=== PATIENT | female | born 1960 | race Caucasian/White ===

== ENCOUNTER 2020-04-27 09:57 | Outpatient (CLI) | payer OTHER, SELFPAY ==
--- NOTE | ~2020-04-27 | MMUS_ITS ---
EXAMINATION: MM diagnostic porter RT w danna, US breast RT limited HISTORY: Follow-up right breast asymmetries TECHNIQUE: Additional 3-D tomosynthesis images of the right breast were performed and synthetic 2-D i mages were generated. CAD analysis was submitted and interpreted. High resolution right breast ultras ound was performed. COMPARISON: Comparison to multiple prior studies sequentially, with oldest reviewed study dated 08/21. BREAST PARENCHYMAL COMPOSITION: Breast composed of scattered areas of fibroglandular density FINDINGS: MAMMOGRAPHIC FINDINGS: The right breast is stable. No new masses, calcifications or architectural distortion. Right breast a symmetries are unchanged. ULTRASOUND: Right breast ultrasound: There are mildly prominent ducts at 9:00 and 8:00. In the subareolar location there is an oval circum scribed hypoechoic mass with parallel orientation measuring 10 x 3 x 8 mm. No internal vascularity or posterior features. IMPRESSION: 1. Benign-appearing right breast mass in the subareolar location. 2. Recommend 6 month follow-up diagnostic bilateral mammogram and right breast ultrasound BI-RADS category 3, probably benign findings. Reviewed, dictated and finalized at location A. IMPRESSION: 1. Benign-appearing right breast mass in the subareolar location. 2. Recommend 6 month follow-up diagnostic bilateral mammogram and right breast ultrasound BI-RADS category 3, probably benign findings.
== END 2020-04-27 09:58 | disposition home or self-care (01) ==
PROVIDERS: PCP Nurse Practitioner Family; Visit Provider Nurse Practitioner Family
DX: R92.8 Other abnormal and inconclusive findings on diagnostic imaging of breast (principal)
CPT/HCPCS: 76642; 77061; 77065; G0279

== ENCOUNTER 2020-09-26 15:45 | Outpatient (CLI) | payer OTHER, SELFPAY ==
--- NOTE | ~2020-09-26 | XR_ITS ---
XR chest 2V DATE: 09/26/2020 16:10 INDICATION: Persistent shortness of breath following Covid infection TECHNIQUE: PA and lateral views COMPARISON: 01/08/2015 PA and lateral chest FINDINGS: Status post lower anterior cervical spine surgical fusion. Diffuse osteopenia. Mild bilateral apical capping. No pulmonary infiltrate or consolidation. There is moderate hyperinflation of the lungs. No pleural e ffusion or pulmonary vascular congestion or pneumothorax. Normal heart size. Apparently old healed right rib fractures. IMPRESSION: Moderate hyperinflation; no active cardiopulmonary disease Reviewed, dictated and finalized at location B. GER MUSIC
[2020-09-26 15:58] LABS: Basophils Absolute Auto 0.05 K/mm3 (0.00-0.10); Basophils Percent Auto 0.7 % (0.0-1.0); Eosinophils Absolute Auto 0.08 K/mm3 (0.02-0.50); Eosinophils Percent Auto 1.1 % (1.0-6.0); Hematocrit 40.6 % (35.0-49.0); Hemoglobin 13.3 g/dL (12.0-15.0); Immature Granulocyte Absolute 0.03 K/mm3 (0.00-0.00); Immature Granulocyte Percent A 0.4 % (0.0-0.0); Lymphocytes Percent Auto 26.9 % (18.0-42.0); Mean Corpuscular HGB Conc 32.8 g/dL (32.0-36.0); Mean Corpuscular Hemoglobin 30.9 pg (27.0-31.0); Mean Corpuscular Volume 94.2 fL (78.0-102.0); Monocytes Absolute Auto 0.44 K/mm3 (0.10-0.90); Monocytes Percent Auto 5.9 % (2.0-11.0); Neutrophils Absolute Auto 4.8 K/mm3 (1.7-7.2); Platelet Count Result 263 K/mm3 (150-420); Red Blood Count 4.31 M/mm3 (4.20-5.40); Red Cell Distribution Width 12.6 % (11.6-14.4); White Blood Count 7.4 K/mm3 (4.8-10.8)
[2020-09-26 17:11] LABS: Alanine Aminotransferase 49 U/L (14-59); Albumin Level 4.2 g/dL (3.4-5.0); Alkaline Phosphatase 97 U/L (46-116); Anion Gap 8 mmol/L (8-16); Aspartate Amino Transferase 16 U/L (15-37); Bilirubin,Total 0.4 mg/dL (0.00-1.00); Blood Urea Nitrogen 16 mg/dL (7-18); Carbon Dioxide 28 mmol/L (21-32); Chloride 104 mmol/L (98-108); Cholesterol 223 mg/dL (0-200); Estimated Glomerular Filt Rate > 60; Free T4 Free Thyroxine 0.78 ng/dL (0.76-1.46); Glucose 94 mg/dL (70-99); HDL Direct 50 mg/dL (40-60); LDL Cholesterol Calculated 147 mg/dL (<130); Osmolality Calculated 291 mOsm/kg (285-295); Potassium 4.4 mmol/L (3.5-5.1); Sodium 140 mmol/L (136-145); Thyroid Stimulating Hormone 4.46 uIU/mL (0.36-3.74); Total Protein 7.4 g/dL (6.4-8.2); Triglycerides 129 mg/dL (0-150)
== END 2020-09-26 15:46 | disposition home or self-care (01) ==
LOC: CHSLAB 15:49
PROVIDERS: PCP Nurse Practitioner Family; Visit Provider Nurse Practitioner Family
DX: R06.00 Dyspnea, unspecified (principal); B94.8 Sequelae of other specified infectious and parasitic diseases; E03.9 Hypothyroidism, unspecified; E78.5 Hyperlipidemia, unspecified; I10 Essential (primary) hypertension
CPT/HCPCS: 36415; 71046; 80053; 80061; 84439; 84443; 85025

== ENCOUNTER 2020-10-18 13:29 | Outpatient (CLI) | payer OTHER, SELFPAY ==
--- NOTE | 2020-10-19 10:30 | WPDPFTINT ---
PFT Interpretation PFT Interpretation: DOS: 10/18/2019 REQUESTING: Cristi Nolasco NP REASON FOR TESTING: shortness of breath PULMONARY FUNCTION TESTS Results are reliable and reproducible. Spirometry: FEV1 is 94%, 2.06 L. FVC 96%. FEV1/FVC 76%. The FEV1, FVC and FEV1% are normal. The WBC36-78% is 76%, mildly decreased. There is no significant change with bronchodilator. Lung volumes: TLC is 100%. RV is 97%. No air trapping. Airway resistance is 138%, mildly increased. Diffusion: DLCO 67%. mildly decreased. Flow volume loop: Normal. IMPRESSION: There is a mild obstructive ventilatory impairment with decreased flows in the small airways with a 15% increase after bronchodilator, normal lung volumes, and a mild decrease in diffusion. The decreased in diffusion is a nonspecific finding. Lack of response to bronchodilator should not preclude use if clinically indicated. Mary Beth Mohr MD
== END 2020-10-18 13:30 | disposition home or self-care (01) ==
LOC: CHSCARD 13:32
PROVIDERS: PCP Nurse Practitioner Family; Visit Provider Nurse Practitioner Family
DX: R06.02 Shortness of breath (principal)
CPT/HCPCS: 94060; 94726; 94729

== ENCOUNTER 2020-11-23 09:22 | Outpatient (CLI) | payer OTHER, SELFPAY ==
--- NOTE | ~2020-11-23 | MMUS_ITS ---
EXAMINATION: MM diagnostic porter BI w danna, US breast RT limited HISTORY: Follow-up right breast mass TECHNIQUE: Additional 3-D tomosynthesis images of the breasts were performed and synthetic 2-D images were generated. CAD analysis was submitted and interpreted. High resolution Limited right breast ult rasound was performed. COMPARISON: Comparison to multiple prior studies sequentially, with oldest reviewed study dated 08/21. BREAST PARENCHYMAL COMPOSITION: Breast composed of scattered areas of fibroglandular density. FINDINGS: MAMMOGRAPHIC FINDINGS: Stable asymmetry in the upper outer quadrant of the right breast. No new masses, calcifications or ar chitectural distortion. ULTRASOUND: Limited right breast ultrasound: In the subareolar location there is a prominent tubular structure me asuring 10 x 6 x 4 mm, likely a dilated duct. No other discrete masses or fluid collections. IMPRESSION: 1. Probable benign findings of the right breast. 2. Recommend 6 month follow-up diagnostic right mammogram and ultrasound BI-RADS category 3, probably benign findings. Reviewed, dictated and finalized at location A. OMETRIC TECHNICIAN IMPRESSION: 1. Probable benign findings of the right breast. 2. Recommend 6 month follow-up diagnostic right mammogram and ultrasound BI-RADS category 3, probably benign findings.
== END 2020-11-23 09:23 | disposition home or self-care (01) ==
PROVIDERS: PCP Nurse Practitioner Family; Visit Provider Nurse Practitioner Family
DX: R92.8 Other abnormal and inconclusive findings on diagnostic imaging of breast (principal)
CPT/HCPCS: 76642; 77062; 77066; G0279

== ENCOUNTER 2021-07-01 09:38 | Outpatient (CLI) | payer OTHER, SELFPAY ==
--- NOTE | ~2021-07-01 | MMUS_ITS ---
EXAMINATION: MM diagnostic porter RT w danna, US breast RT limited HISTORY: Follow-up right breast abnormality. TECHNIQUE: Additional 3-D tomosynthesis images of the right breast were performed and synthetic 2-D i mages were generated. CAD analysis was submitted and interpreted. High resolution Limited right breas t ultrasound was performed. COMPARISON: Comparison to multiple prior studies sequentially, with oldest reviewed study dated 08/21. BREAST PARENCHYMAL COMPOSITION: Breast composed of scattered areas of fibroglandular density. FINDINGS: MAMMOGRAPHIC FINDINGS: There are no suspicious masses, calcifications or architectural distortion in the right breast to sug gest malignancy. ULTRASOUND: Limited right breast ultrasound: In the subareolar location of the right breast there is a mildly pro minent duct without significant change. No suspicious masses to suggest malignancy. IMPRESSION: 1. No evidence for malignancy in the right breast. 2. Routine yearly screening mammogram and regular clinical breast examination are recommended. BI-RADS Category 2: Benign finding(s). Reviewed, dictated and finalized at location A. IMPRESSION: 1. No evidence for malignancy in the right breast. 2. Routine yearly screening mammogram and regular clinical breast examination a re recommended. BI-RADS Category 2: Benign finding(s).
== END 2021-07-01 09:39 | disposition home or self-care (01) ==
LOC: CHSIMG 09:39
PROVIDERS: PCP Nurse Practitioner Family; Visit Provider Nurse Practitioner Family
DX: R92.8 Other abnormal and inconclusive findings on diagnostic imaging of breast (principal)
CPT/HCPCS: 76642; 77061; 77065; G0279

== ENCOUNTER 2021-07-12 10:25 | Outpatient (CLI) | payer OTHER, SELFPAY ==
--- NOTE | ~2021-07-12 | XR_ITS ---
EXAMINATION:XR_CERV2-3V_CR, XR thoracic spine 2V DATE: 07/12/2021 10:58 INDICATION: Dorsalgia with pain radiating from the mid neck into the thoracic spine TECHNIQUE: 1. AP, lateral and odontoid views of the cervical spine are provided. 2. AP, lateral and lateral swimmer's views of the thoracic spine were obtained. COMPARISON: None FINDINGS: Cervical spine: Alignment is normal. Chronic C5-C7 anterior spinal fusion with anterior plate and screw fixation. Odo ntoid is intact with mild atlantoaxial osteoarthritis. Unfused cervical vertebral body heights are no rmal. Mild disc height loss at C4-C5. Mild to moderate upper cervical spine predominant facet osteoar thritis. Prevertebral soft tissues are normal. Thoracic spine: Alignment is normal. Vertebral body heights are normal. Multilevel disc height loss, mild in the uppe r and moderate in the mid to lower thoracic spine. There are multiple endplate osteophytes, bridging at several levels in the lower thoracic spine consistent with diffuse idiopathic skeletal hyperostosi s (DISH). Visualized portions of the lungs are clear. No pneumothorax. IMPRESSION: 1. C5-C7 instrumented anterior cervical spinal fusion. 2. Mild to moderate cervical and thoracic spondylosis. No acute osseous abnormality. Reviewed, dictated and finalized at location A. IMPRESSION: 1. C5-C7 instrumented anterior cervical spinal fusion. 2. Mild to moderate cervical and thoracic spondylosis. No acute osseous abnorma lity.
== END 2021-07-12 10:26 | disposition home or self-care (01) ==
LOC: CHSIMG 10:27
PROVIDERS: PCP Nurse Practitioner Family; Visit Provider Nurse Practitioner Family
DX: M54.9 Dorsalgia, unspecified (principal)
CPT/HCPCS: 72040; 72070

== ENCOUNTER 2021-12-23 14:09 | Outpatient (CLI) | payer OTHER, SELFPAY | END 2021-12-23 14:10 | disposition home or self-care (01) | LOC: ANHAUDASC 14:10 | PROVIDERS: PCP Nurse Practitioner Family; Visit Provider Otolaryngology | DX: H90.6 Mixed conductive and sensorineural hearing loss, bilateral (principal) | CPT/HCPCS: 92557; 92567 ==

== ENCOUNTER 2022-01-24 01:50 | Day surgery (SDC) | payer OTHER, SELFPAY ==
--- NOTE | 2022-01-20 15:07 | PC.NURSE ---
Addendum entered by Belkys Cannon RN 01/21/22 10:23: PT INSTRUCTED TO HOLD LOSARTAN MORNING OF SURGERY. Original Note: PLEASE GIVE TO PATIENT AT THE TIME OF PREOP TESTING Report to the Outpatient Waiting Room, entrance under the green pavilion located off [facility], at time _0700_ on date _01/24/22 . OR Time: _0900_ . IF YOUR PROCEDURE TIME IS CHANGED. WE WILL CALL YOU IN . - You and your visitor will be asked a series of questions to screen for COVID 19 for your protection. - Only one visitor is allowed at this time. - The patient visitor is requested to leave or wait in car when not with patient. - A mask is required within the hospital. Patients may have clear liquids (water, carbonated beverages, clear teas, apple juice) until 3 hours prior to surgery with a maximum of 20 ounces. - No food from midnight until time of surgery. STOP CLEAR LIQUIDS AT 0600 ON THE MORNING OF SURGERY - Take the following medications with a SIP of water the morning of surgery: __LOSARTAN_; ALBUTEROL INHALER IF NEEDED Medications to discontinue per physician N/A Date to take last dose Please no make-up, nail georgian, hairspray, perfume, deodorant, or body powder the day of surgery. No jewelry (including any body piercings) or valuables the day of surgery, leave them at home. Please take a shower or bath the night before, or the morning of, surgery with an antibacterial soap. Wear comfortable, loose fitting clothing. Children are encouraged to wear pajamas. - Jewelry must be removed prior to entering the operating room. Rings and piercings that are not removed may be cut off. - The hospital will not accept responsibility for valuables. - Please leave all valuables, including medications, at home the day of surgery. IF YOU ARE UNABLE TO GET PREOP EKG DONE AT [facility], PLEASE NOTIFY DINA LAI @ [phone]. A PREOP EKG WILL BE PERFORMED THE MORNING OF SURGERY; AN ABNORMAL FINDING MAY CANCEL YOUR SURGERY. If you are going home after surgery, a licensed racecar driver must drive you home. - NO public transportation without another adult. - We recommend that an adult stay with you for 24 hours following discharge. - We also recommend that you do not drive, make important decision, drink alcoholic beverages, or take any drugs that were not prescribed by your health care provider for at least 24 hours after your discharge time. For Pediatric surgeries, we recommend two adults accompany the child home (only one inside the building at this time). Follow any additional instructions given to you from your surgeon. If you or anyone in your household have experienced Covid symptoms in the past week, please notify your surgeon or the nurse liaison at the phone number below for possible testing. Telephone instructions given to __PATTY and asked if any additional questions and then verbalized understanding. Patient advised to call surgeon office or pre surgery nurse liaison [phone] if any additional questions.
--- NOTE | 2022-01-23 08:26 | PM.IMHP ---
H&P: HPI History of Present Illness Date/Time: 01/23/22 08:26 Chief Complaint: Eustachian tube dysfunction, type B tympanograms, intermittent otitis media, ear pressure Narrative: patient presents for planned surgical procedure no change in symptoms no change in history. Review of Systems Constitutional: Constitutional: Denies fatigue, Denies fever(s) and Denies lethargy Eyes: Eyes: Denies blurry vision and Denies change in vision ENT: Reports as per HPI Cardiovascular: Cardiovascular: Denies chest pain Respiratory: Respiratory: Denies cough Endocrine: Endocrine: Denies fatigue Hematologic/Lymphatic: Hematologic/Lymphatic: Denies easy bleeding, Denies easy bruising and Denies lymphadenopathy Allergic/Immunologic: Allergic/Immunologic: Denies seasonal rhinorrhea [facility] Past Medical History Medical History Back pain Hypothyroidism Osteoarthritis of left hip Sleep apnea Surgical History Surgical History Hx of section 1994 Family History Family History Mother Familial Alzheimer's disease of late onset Asthma Father Acute myocardial infarction Family history of coronary artery disease Alcohol abuse Father Acute myocardial infarction Family history of coronary artery disease Sibling Alcohol abuse Other Asthma Other Family history of alcoholism Family history of arthritis Hypertension Social History Social History Smoking packs per day: 2.5 Smoking cigarettes per day: 50.0 Years smoked: 14 Smoking pack-years: 35.00 Smoking status: Former smoker Tobacco type: cigarettes Smoking end date: 09/21/88 Alcohol intake: never Substance use: never Substance use type: does not use Last use: 1987 Living arrangements: with family Spiritual care concerns: No Meds Home Medications and Allergies Home Medications Medication Instructions Recorded Confirmed Type albuterol sulfate 90 mcg/actuation 1 puff INHALATION Q4H PRN #8 g 09/26/20 01/20/22 Rx aerosol inhaler fluticasone propionate 50 2 spray INTRANASAL BID #16 ml 02/13/21 01/20/22 Rx mcg/actuation nasal spray,suspension losartan [Cozaar] 50 mg PO BID 01/20/22 01/20/22 History Allergies Allergy/AdvReac Type Severity Reaction Status Date / Time No Known Allergies Allergy Unknown Verified 01/20/22 14:49 Exam Const: General: cooperative, healthy appearing, comfortable, well developed and alert HENMT: Head: normal to inspection, normocephalic and atraumatic Ears: hearing grossly normal bilaterally, external ears normal, TM's abnormal bilaterally ( Retraction bilaterally) and EAC's normal General nose exam: Normal external nose present, Normal nares present, No nasal polyps present, Normal nasal mucous membranes and turbinates present and Normal septum present Face and sinus: normal facial exam Mouth: Yes Normal oral and palatal mucosa present, Yes lip normal, Yes tongue normal, Yes oropharynx normal and Yes moist mucous membranes Teeth and gingiva: dentition normal and gingiva normal Throat: posterior oropharynx normal, tonsils normal and uvula midline Eyes: General: appearance normal, both eyes and all related structures Periorbital: periorbital findings normal Eyelids: eyelids normal Conjunctivae: conjunctivae normal Sclera: sclerae normal Neck: Neck: normal visual inspection, full ROM and no lymphadenopathy Thyroid: thyroid normal Lymphatic: no lymphadenopathy noted Resp: Effort & Inspection: normal respiratory effort and able to speak in complete sentences Cardio: Jugular venous distension: no JVD Neuro: Cranial nerves: Yes CN's II-XII intact bilaterally Assessment and Plan Assessment and plan (1) Dysfunction of both eustachian tubes:
[2022-01-24] VITALS (11 sets, daily range): BP systolic 100–143; BP diastolic 68–82; PULSE 71–126; RESP 14–18; TEMP 36.3–36.4; O2SAT 95–99
--- NOTE | 2022-01-24 06:31 | ECG_ITS ---
Measurements Intervals [place] Rate: 99 P: UT: 0 QRS: 52 QRSD: 91 T: 34 QT: 348 QTc: 447 Interpretive Statements ATRIAL FIBRILLATION ABNORMAL ECG Electronically Signed On 01-24-2022 8:12:53 CDT by Jonathan Lozano D.O.
[2022-01-24] MEDS: ACETAMINOPHEN 500 MG TABLET 1000 MG PO (06:35)
[2022-01-24] MEDS: LACTATED RINGERS 1,000 ML 30 ML IV CONT (06:40)
--- NOTE | 2022-01-24 06:45 | P.PNAN_ITS ---
Anes - Initial Pre Proc Eval Procedure: Operation Date: 01/24/22 07:30 Proposed Procedures p Bilateral Myringotomy, Insertion Of T-Tubes - Gus Milligan MD Date/Time: 01/24/22 06:45 Surgeon: Gus Milligan MD Pre Op Diagnosis: bilat chronic otitis media Patient Data Age: 61 Gender: F Height: 1.55 m Weight: 105.9 kg Last Vital Signs Temp 36.4 C L 01/24/22 06:26 Pulse 99 01/24/22 06:26 Resp 18 01/24/22 06:26 BP 143/74 H 01/24/22 06:26 Pulse Ox 97 01/24/22 06:26 Allergies Allergy/AdvReac Type Severity Reaction Status Date / Time No Known Allergies Allergy Unknown Verified 01/24/22 06:25 Home Medications Medication Instructions Recorded Confirmed Type albuterol sulfate 90 mcg/actuation 1 puff INHALATION Q4H PRN #8 g 09/26/20 01/24/22 Rx aerosol inhaler fluticasone propionate 50 2 spray INTRANASAL BID #16 ml 02/13/21 01/24/22 Rx mcg/actuation nasal spray,suspension losartan [Cozaar] 50 mg PO BID 01/20/22 01/24/22 History Patient hx anesthesia problems: none Family hx anesthesia problems: none Results Review: All pre-operative results and documents have been reviewed as part of the pre-operative evaluation. [facility] Past Medical History Medical History Back pain COPD (chronic obstructive pulmonary disease) HTN (hypertension) Hypothyroidism Osteoarthritis of left hip Sleep apnea Surgical History Surgical History Hx of section 1994 Family History Family History Mother Familial Alzheimer's disease of late onset Asthma Father Acute myocardial infarction Family history of coronary artery disease Alcohol abuse Father Acute myocardial infarction Family history of coronary artery disease Sibling Alcohol abuse Other Asthma Other Family history of alcoholism Family history of arthritis Hypertension Social History Social History Smoking packs per day: 2.5 Smoking cigarettes per day: 50.0 Years smoked: 14 Smoking pack-years: 35.00 Smoking status: Former smoker Tobacco type: cigarettes Smoking end date: 09/21/88 Alcohol intake: never Substance use: never Substance use type: does not use Last use: 1987 Living arrangements: with family Spiritual care concerns: No Anes - Eval Final PreProcedure Day of Procedure 01/24/22 06:45 Patient weight: morbidly obese Heart: regular rate and rhythm Lungs: decreased breath sounds Airway: Mallampati scale class II Neurological: alert and oriented Last oral intake: >/= 8 hours ASA classification: III Emergent: no Anesthetic plan: proceed Anesthesia type and monitoring: general GIVS and standard monitoring Results Review: All pre-operative results and documents have been reviewed as part of the pre-operative evaluation. Informed Consent: The patient's anesthetic plan and its attendant risks and benefits were discussed with the patient/family/POA. Questions were solicited and answers provided to the satisfaction of the patient/family/POA.
--- NOTE | 2022-01-24 07:18 | WPDHPUPDATE1 ---
History and Physical Update Update Date/Time: 01/24/22 07:18 History and Physical has been reviewed, including an updated exam of the patient. There are NO changes in the patient's condition. Risks, benefits, and alternatives have been discussed and questions answered. Patient agrees to proceed with procedure.
--- NOTE | 2022-01-24 07:32 | SUR.PREOP ---
Dr. Cavazos and Dr. Milligan aware of abnormal EKG reporting a-fib 99bpm. Per Dr. Cavazos OK to proceed with rate controlled for low stress surgery. Patient educated on a-fib and need for follow up and risks for no treatment. Patient feels OK to proceed with surgery. Dr. Milligan aware of Dr. Cavazos's recommendation and is OK with proceeding. TYRESE Grant aware of EKG as well.
[2022-01-24] MEDS: CIPROFLOXACIN HCL 0.3% OP SOLN 2.5 ML BTL 4 DROP EACH EAR (07:37)
[2022-01-24] MEDS: METOPROLOL TARTRATE INJ 5 MG/5 ML VIAL IV PUSH (07:50)
--- NOTE | 2022-01-24 07:51 | W.PM.PROC2 ---
Procedure Note - Detailed Date of Procedure 01/24/22 Pre-op Diagnosis bilat chronic otitis media Post-op Diagnosis Same Procedure Performed Bilateral myringotomy with T-tube insertion Surgeon Gus Milligan MD Anesthesia General (LMA) Indications See above Findings Retracted tympanic membranes very good neutral position following insertion of T-tube/myringotomy Description of Procedure EKG demonstrated atrial fibrillation patient warned of the risks of undergoing procedure. Patient voiced understanding of these risks and stated that she wanted the tubes placed. Patient further identified consent verified. Patient brought operating room. Time-out performed. General anesthesia induced LMA secured. Second time-out performed. Patient prepped and draped prior to 2nd time-out. Much lola microscope utilized right EAC and TM viewed retracted myringotomy made minimal bleeding T-tube inserted. Exact same procedure with exact same findings noted on the left side and performed on the left side. Drops placed bilaterally. I performed all dictated portions. Blood loss essentially 0 cc. Care the patient turned over to Anesthesiology. No complications immediately. Patient taken to PACU. Implants T tubes Estimated Blood Loss 0 Packing No Pathology None sent Complications No immediate complications Condition Stable Disposition PACU
--- NOTE | 2022-01-24 07:56 | SUR.PHASEI ---
0743 DR WYNN AWARE OF HR 126 CARDIAC RHYTHM AFIB- METOPROLOL ORDERED. 0754 DR WYNN AT BEDSIDE. HR 90. DR WYNN CALLING CARDIOLOGY FOR CONSULT. DR BOLDEN WITH PT GOING TO [facility] TO WAIT FOR CONSULT.
--- NOTE | 2022-01-24 09:16 | PM.CNCAR ---
Assessment and Plan Assessment and plan (1) Atrial fibrillation: Code(s): I48.91 - Unspecified atrial fibrillation Status: Acute Assessment and Plan: New onset, recognized by EKG prior to elective outpatient procedure this morning. Unknown duration but per patient she had an EKG about 3 months ago that did not show atrial fibrillation. No clear symptomatic correlation with possible onset. Currently rate controlled without any AV tin blocking agents. CHADS2 Vasc score is 2 (female gender, hypertension). Anticoagulation is indicated. Will initiate her on Xarelto 20 mg daily. Will arrange for outpatient follow-up in our office and several weeks Check TSH and free T4 Will need a stress test and echocardiogram as an outpatient (2) Sleep apnea: Code(s): G47.30 - Sleep apnea, unspecified Status: Acute Assessment and Plan: Compliant with CPAP. History of Present Illness History of Present Illness Consult date/time: 01/24/22 09:16 Ms. Daniel booth is a very pleasant 61-year-old female with a medical history of sleep apnea, hypothyroidism, hypertension who presented to [facility] today for an elective bilateral myringotomy with insertion of T-tubes. Prior to her procedure this morning an EKG was obtained that demonstrated atrial fibrillation. Patient denies having any history of atrial fibrillation. She also denies having any cardiac history but does say that she has had a stress test in the past as well as a left heart catheterization that by her report was negative for any significant coronary artery disease. She also states that she had an EKG performed about 3 months ago that did not show atrial fibrillation. She does state that she has been experiencing intermittent palpitations. She also describes an episode of palpitations associated with some chest pain last evening. Denies any other chest pain. She denies any orthopnea, paroxysmal nocturnal dyspnea, syncope, presyncope. She does endorse some mild bilateral lower extremity swelling. She reports nightly compliance with her CPAP. Currently, her telemetry is demonstrating atrial fibrillation with controlled ventricular response. Requesting physician: Ronal Cavazos MD Consult reason: atrial fibrillation Reason For Visit: bilat chronic otitis media Review of Systems Review of Systems: All systems reviewed & are unremarkable except as noted in HPI and below Constitutional: Constitutional: Denies fatigue, Denies lethargy and Denies weakness ENT: Reports Normal hearing present and Reports nasal congestion Cardiovascular: Cardiovascular: Reports chest pain, Denies diaphoresis, Reports pedal edema, Denies lightheadedness and Reports palpitations Respiratory: Respiratory: Denies chest congestion, Reports dyspnea on exertion and Denies wheezing Gastrointestinal: Gastrointestinal: Denies constipation and Denies diarrhea Genitourinary: Genitourinary: Denies hematuria, Denies dysuria and Denies urinary urgency Musculoskeletal: Musculoskeletal: Denies back pain, Reports arthralgias, Reports joint swelling and Denies neck pain Integumentary/Breasts: Skin/Breast: Denies unusual bruising Neurologic: Reports headache(s) and Reports numbness (L leg numbness for years ) Psychiatric: Psychiatric: Denies anxiety, Denies confusion and Denies depression Endocrine: Endocrine: Denies excessive sweating, Denies fatigue and Denies flushing Hematologic/Lymphatic: Hematologic/Lymphatic: Denies easy bleeding and Denies easy bruising Allergic/Immunologic: Allergic/Immunologic: Denies GI upset with certain foods and Denies lip swelling PMFSH Past Medical History Medical History Back pain COPD (chronic obstructive pulmonary disease) HTN (hypertension) Hypothyroidism Osteoarthritis of left hip Sleep apnea Surgical History Surgical History (Reviewed 01/24/22 @ 09:17 by Rogers Romero
--- NOTE | 2022-01-24 09:23 | SUR.PHASEII ---
cardiology nnps at bedside tung love
--- NOTE | 2022-01-24 10:23 | SUR.PHASEII ---
case coordination is at bedside
--- NOTE | 2022-01-24 10:37 | PCCCNOTE ---
Called by Recovery about patient starting on Xarelto for new onset afib and needs care coordination consult. Called to [facility], Xarelto 20mg has already been called in, does not require prior auth, patient's copay will be 50 dollars per month. Met with patient at bedside, she states that 50 dollars per month is a little tough, provided patient with 30 day trial card, and print out for Savings Card with all information on how to register and/or contact [facility] for Savings Program Card. Patient verbalizes understanding of resources. Updated bedside RNBeronica. Beronica to contact Cardiology HEEL [facility]ELER to make sure that resources are sufficient.
--- NOTE | 2022-01-24 14:37 | SUR.PHASEII ---
at 1045 pt meets discharge criteria and is waiting on an appt with cardiology per megan ruby then pt can go home.
--- NOTE | 2022-01-24 14:39 | SUR.PHASEII ---
per keno manager tung for cardiology pt can go home at 1140 since she has not heard about any appt and she should hear from the office in a week if not call for an appt in 2 wks.
== END 2022-01-24 11:40 | disposition home or self-care (01) ==
PROVIDERS: PCP Nurse Practitioner Family; Visit Provider Otolaryngology
PROC: (CPT 69436; principal; 2022-01-24 07:30)
DX: H66.93 Otitis media, unspecified, bilateral (principal); H91.93 Unspecified hearing loss, bilateral; I48.91 Unspecified atrial fibrillation; G47.30 Sleep apnea, unspecified; E03.9 Hypothyroidism, unspecified; I10 Essential (primary) hypertension; Z95.5 Presence of coronary angioplasty implant and graft; J44.9 Chronic obstructive pulmonary disease, unspecified; Z87.891 Personal history of nicotine dependence; Z79.01 Long term (current) use of anticoagulants; Z79.51 Long term (current) use of inhaled steroids; E66.01 Morbid (severe) obesity due to excess calories; Z68.41 Body mass index [BMI] 40.0-44.9, adult
CPT/HCPCS: 69436; 93005; A9270; J1100; J2405; J2704; J7120

== ENCOUNTER 2022-04-04 07:46 | Outpatient (CLI) | payer OTHER, SELFPAY ==
[2022-04-04 08:22] LABS: Basophils Absolute Auto 0.1 K/mm3 (0.0-0.1); Basophils Percent Auto 0.8 % (0.2-1.2); Eosinophils Absolute Auto 0.1 K/mm3 (0-0.3); Eosinophils Percent Auto 1.7 % (0-4.4); Hematocrit 38.7 % (37.0-47.0); Hemoglobin 12.9 g/dL (12.0-15.0); Immature Granulocyte Absolute 0.03 K/mm3 (0.00-0.031); Immature Granulocyte Percent A 0.5 % (0-0.5); Lymphocytes Absolute Auto 1.98 K/mm3 (0.9-3.2); Lymphocytes Percent Auto 32.9 % (18.3-44.2); Mean Corpuscular HGB Conc 33.3 g/dl (32-36); Mean Corpuscular Hemoglobin 31.3 pg (26-34); Mean Corpuscular Volume 93.9 fl (80-100); Mean Platelet Volume 10.8 fl (7.4-10.4); Monocytes Absolute Auto 0.5 K/mm3 (0.1-0.6); Monocytes Percent Auto 8.6 % (2.6-8.5); Neutrophils Absolute Auto 3.3 K/mm3 (1.3-6.7); Neutrophils Percent Auto 55.5 % (45.5-73.1); Platelet Count Result 274 k/mm3 (150-375); Red Blood Count 4.12 M/mm3 (4.2-5.4); Red Cell Distribution Width 13.3 % (11.5-14.5)
[2022-04-04 08:35] LABS: Alanine Aminotransferase 29 U/L (6-35); Albumin Level 4.3 g/dL (3.5-5.1); Alkaline Phosphatase 88 U/L (38-126); Anion Gap 6 mmol/L (8-16); Aspartate Amino Transferase 22 U/L (14-36); Bilirubin,Total 0.6 mg/dL (0.2-1.3); Blood Urea Nitrogen 16 mg/dL (7-17); Calcium 8.9 mg/dL (8.4-10.2); Carbon Dioxide 27 mmol/L (22-30); Chloride 108 mmol/L (98-107); Estimated Glomerular Filt Rate > 60; Glucose 108 mg/dL (65-110); Sodium 141 mmol/L (137-145)
== END 2022-04-04 07:47 | disposition home or self-care (01) ==
PROVIDERS: PCP Nurse Practitioner Family; Visit Provider Internal Medicine Cardiovascular Disease
DX: Z01.812 Encounter for preprocedural laboratory examination (principal)
CPT/HCPCS: 36415; 80053; 85025

== ENCOUNTER 2022-04-08 00:18 | Day surgery (SDC) | payer OTHER, SELFPAY ==
[2022-04-07 12:41] VITALS: BMI 44.5
[2022-04-08] VITALS (8 sets, daily range): BP systolic 104–157; BP diastolic 59–74; PULSE 63–71; RESP 14–20; TEMP 36.3; O2SAT 95–100; BMI 44.7
[2022-04-08 07:46] LABS: Basophils Absolute Auto 0.1 K/mm3 (0.0-0.1); Basophils Percent Auto 1.2 % (0.2-1.2); Eosinophils Absolute Auto 0.1 K/mm3 (0-0.3); Eosinophils Percent Auto 1.8 % (0-4.4); Hematocrit 39.8 % (37.0-47.0); Hemoglobin 13.5 g/dL (12.0-15.0); Immature Granulocyte Absolute 0.02 K/mm3 (0.00-0.031); Immature Granulocyte Percent A 0.4 % (0-0.5); Lymphocytes Absolute Auto 1.82 K/mm3 (0.9-3.2); Lymphocytes Percent Auto 32.3 % (18.3-44.2); Mean Corpuscular HGB Conc 33.9 g/dl (32-36); Mean Corpuscular Hemoglobin 31.1 pg (26-34); Mean Corpuscular Volume 91.7 fl (80-100); Mean Platelet Volume 10.8 fl (7.4-10.4); Monocytes Absolute Auto 0.5 K/mm3 (0.1-0.6); Monocytes Percent Auto 8.3 % (2.6-8.5); Neutrophils Absolute Auto 3.2 K/mm3 (1.3-6.7); Platelet Count Result 275 k/mm3 (150-375); Red Blood Count 4.34 M/mm3 (4.2-5.4); Red Cell Distribution Width 13.4 % (11.5-14.5); White Blood Count 5.6 K/mm3 (4.5-10.0)
[2022-04-08 07:55] LABS: Anion Gap 8 mmol/L (8-16); Blood Urea Nitrogen 11 mg/dL (7-17); Calcium 8.9 mg/dL (8.4-10.2); Carbon Dioxide 25 mmol/L (22-30); Chloride 108 mmol/L (98-107); Estimated CRCL calculation 81 ml/min; Estimated Glomerular Filt Rate > 60; Glucose 108 mg/dL (65-110); Potassium 4.1 mmol/L (3.4-5.0); Sodium 141 mmol/L (137-145)
--- NOTE | 2022-04-08 08:47 | WPDMODSED ---
Moderate Sedation Note-Pt Data Patient Data Allergies Allergy/AdvReac Type Severity Reaction Status Date / Time No Known Allergies Allergy Unknown Verified 02/27/22 09:15 Home Medications Medication Instructions Recorded Confirmed Type fluticasone propionate 50 2 spray intranasal BID #16 mL 02/13/21 04/07/22 Rx mcg/actuation nasal spray,suspension (Flonase Allergy Relief) rivaroxaban 20 mg tablet (Xarelto) 20 mg PO QPM #30 tabs 01/24/22 04/08/22 Rx albuterol sulfate 90 mcg/actuation See Rx Instructions .Route .COMPLEX 04/07/22 04/07/22 History aerosol inhaler aspirin 81 mg tablet 81 mg PO DAILY 04/07/22 04/07/22 History empagliflozin 10 mg tablet 10 mg PO DAILY 04/07/22 04/07/22 History (Jardiance) isosorbide mononitrate 30 mg 30 mg PO DAILY 04/07/22 04/07/22 History tablet,extended release 24 hr metoprolol succinate 25 mg 25 mg PO DAILY 04/07/22 04/07/22 History tablet,extended release 24 hr sacubitril 49 mg-valsartan 51 mg 1 tablet PO BID 04/07/22 04/08/22 History tablet (Entresto) Current Medications: Active Medications Sodium Chloride (Normal Saline Iv) 500 mls @ 100 mls/hr IV CONT .Q5H CHRISTINA Sedation/Anesthesia: No previous sedation/anesthesia problems (including family history). [facility] Past Medical History Medical History Back pain COPD (chronic obstructive pulmonary disease) HTN (hypertension) Hypothyroidism Osteoarthritis of left hip Sleep apnea Surgical History Surgical History Hx of section 1994 Family History Family History Mother Familial Alzheimer's disease of late onset Asthma Father Acute myocardial infarction Family history of coronary artery disease Alcohol abuse Father Acute myocardial infarction Family history of coronary artery disease Sibling Alcohol abuse Other Asthma Other Family history of alcoholism Family history of arthritis Hypertension Social History Social History Smoking packs per day: 2.5 Smoking cigarettes per day: 50.0 Years smoked: 14 Smoking pack-years: 35.00 Smoking status: Former smoker Tobacco type: cigarettes Smoking end date: 09/21/88 Additional smoking assessment comments: quit 1986 Alcohol intake: never Alcohol use details: occasional Substance use: never Substance use type: does not use Last use: 1987 Living arrangements: with family Spiritual care concerns: No Mod Sed Physical Exam Physical Exam Pre Procedural Exam: Normal: Airway Hours since solid foods: 1 Hours since liquid intake: 10 Mallampati Classification: class III Internal Medicine - PN: Obj Da Vital Signs Vital Signs: Vital Signs - 24 hr 04/08/22 07:25 Temperature 36.3 C L Pulse Rate 70 Respiratory Rate 20 Blood Pressure 157/74 H Pulse Oximetry 100 Oxygen Delivery Room Air Meds/Results Medications: Active Medications Generic Name Dose Route Start Last Admin Trade Name Freq PRN Reason Stop Dose Admin Sodium Chloride 500 mls @ 100 mls/hr 04/08/22 07:00 Normal Saline Iv IV CONT .Q5H CHRISTINA Labs CBC & Chem 7: 04/08/22 07:38 04/08/22 07:38 Labs: Laboratory Results - last 24 hr 04/08/22 04/08/22 07:38 07:38 WBC 5.6 RBC 4.34 Hgb 13.5 Hct 39.8 MCV 91.7 MCH 31.1 MCHC 33.9 RDW 13.4 Plt Count 275 MPV 10.8 H Immature Gran % (Auto) 0.4 Neut % (Auto) 56.0 Lymph % (Auto) 32.3 [place] % (Auto) 8.3 Eos % (Auto) 1.8 Baso % (Auto) 1.2 Lymph # (Auto) 1.82 [place] # (Auto) 0.5 Eos # (Auto) 0.1 Baso # (Auto) 0.1 Abs Immat Gran (auto) 0.02 Absolute Neuts (auto) 3.2 Absolute Nucleated RBC 0.0 Nucleated RBC % 0.0 Sodium 141 Potassium 4.1 Chloride 108 H
--- NOTE | 2022-04-08 08:49 | WPDHPUPDATE1 ---
History and Physical Update Update Date/Time: 04/08/22 08:49 History and Physical has been reviewed, including an updated exam of the patient. There are NO changes in the patient's condition. Risks, benefits, and alternatives have been discussed and questions answered. Patient agrees to proceed with procedure.
--- NOTE | 2022-04-08 09:29 | WPDCARDPROC ---
Cardiac Cath Procedure Note Date of procedure:: 04/08/22 Performing physician:: Donnie Herndon MD Procedure Procedure note:: LEFT HEART CATHETERIZATION AND CORONARY ANGIOGRAM REPORT DATE OF PROCEDURE: 04/08/2022 INDICATION FOR PROCEDURE: chest pain, coronary risk factors, abnormal MPI BRIEF CLINICAL HISTORY: 61-year-old female with paroxysmal atrial fibrillation, hypertension, hypothyroidism, FABRICIO on CPAP of, morbid obesity. Patient has been experiencing episodes of chest discomfort, worse with exertion. MPI from 03/06/2022 reportedly showed hyperdynamic LV systolic function, ischemia involving anterior and anteroseptal martinez. Coronary angiogram was recommended rule out significant obstructive CAD. Benefits and risks of the procedure were discussed with the patient in depth, and informed consent was obtained prior to the procedure. Risks of the procedure include but are not limited to vascular complications including groin hematoma, retroperitoneal bleed, vessel perforation; periprocedural VT, cardiac arrhythmias, stroke, contrast induced nephropathy, and . After discussing all the benefits, risks and alternatives, patient was willing to proceed with the procedure. PROCEDURES PERFORMED: 1. Left heart catheterization- Selective left and right coronary angiogram; left ventriculogram and hemodynamic assessment 2. Deployment of Mynx hemostatic device 3. Moderate sedation-CPT code 40967 MODERATE SEDATION: Midazolam 2 mg; fentanyl 50 mcg; Start time 0857 , Stop time 0921 ; Total [id number] time 24 minutes; Benja Le RN was trained observer for moderate sedation. ACCESS SITE: Right common femoral artery PROCEDURE NOTE: After obtaining informed consent, patient was brought to catheterization lab and prepped and draped in a usual sterile manner. After local anesthesia with lidocaine, right common femoral artery access was taken with micropuncture needle followed by insertion of a 6 [place] sheath. Selective left and right coronary angiogram was performed using 5 [place] JL4 and JR4 catheters respectively. Orthogonal views were taken. Next, a 5 [place]an pigtail catheter was advanced in the LV cavity and was flushed with normal saline. LV pressure measurement was performed. After this, left ventriculogram was performed. The catheter was flushed again, and gradient across the aortic valve was measured on the pullback of the catheter. Finally, Mynx vascular closure device was deployed with good hemostasis. Patient tolerated procedure well without any immediate procedure related complications. FINDINGS: LEFT MAIN CORONARY: the left main coronary is a very short vessel, without angiographically significant focal stenosis. The vessel Trifurcates into LAD, ramus intermedius and left circumflex branches. LEFT ANTERIOR DESCENDING ARTERY: The LAD is a medium caliber, tortuous vessel, tapers distally and reaches LV apex. No significant focal stenosis in the seen in the LAD or its diagonal branch. RAMUS INTERMEDIUS: A large caliber vessel, no significant focal stenosis. LEFT CIRCUMFLEX ARTERY: The left circumflex artery is a medium-sized vessel, gives rise to smaller caliber OM branches and PDA without significant focal stenosis. RIGHT CORONARY ARTERY: Small to medium caliber, codominant vessel, gives rise to small-caliber PDA branch without significant focal stenosis. LEFT VENTRICULOGRAM: Ventricular ectopy was seen during left ventriculogram. Hyperdynamic LV systolic function, ejection fraction more than 70%. LVEDP 11 mmHg. HEMODYNAMIC ASSESSMENT: Opening pressure 160/82 mmHg , closing pressure 149/82 mmHg , LVEDP 11 mmHg , no significant gradient across aortic valve on the pullback of pigtail catheter. RIGHT COMMON FEMORAL ARTERY: Patent CONCLUSIONS: 1. No angiographically significant obstructive CAD. 2. Hyperdynamic LV systolic function, ejection fraction more than 70%, LVEDP 11 mmHg. PLAN/RECOMMENDATIONS: Op
== END 2022-04-08 13:40 | disposition home or self-care (01) ==
PROVIDERS: PCP Nurse Practitioner Family; Visit Provider Internal Medicine Cardiovascular Disease
PROC: 4A023N7 Measurement of Cardiac Sampling and Pressure, Left Heart, Percutaneous Approach (ICD-10-PCS; CPT 93452; principal; 2022-04-08 08:30)
DX: R94.39 Abnormal result of other cardiovascular function study (principal); R07.89 Other chest pain; J44.9 Chronic obstructive pulmonary disease, unspecified; I11.0 Hypertensive heart disease with heart failure; E03.9 Hypothyroidism, unspecified; G47.30 Sleep apnea, unspecified; M19.90 Unspecified osteoarthritis, unspecified site; Z87.891 Personal history of nicotine dependence; R06.09 Other forms of dyspnea; E07.9 Disorder of thyroid, unspecified; Z79.01 Long term (current) use of anticoagulants; Z79.82 Long term (current) use of aspirin; Z79.51 Long term (current) use of inhaled steroids; I20.8 Other forms of angina pectoris; R06.00 Dyspnea, unspecified; I50.32 Chronic diastolic (congestive) heart failure; E66.01 Morbid (severe) obesity due to excess calories; Z68.41 Body mass index [BMI] 40.0-44.9, adult; I48.0 Paroxysmal atrial fibrillation
CPT/HCPCS: 36415; 80048; 80053; 85025; 93458; C1760; C1887; C1894; G0269; J1644; J2250; J2310; J3010; J7040

== ENCOUNTER 2022-06-16 14:39 | Outpatient (CLI) | payer OTHER, SELFPAY ==
--- NOTE | ~2022-06-16 | XR_ITS ---
XR chest 2V 06/16/2022 15:27 Indication: Shortness of breath and chest tightness Procedure: 2 view chest Comparison: Comparison to multiple prior studies sequentially, with oldest reviewed study dated 06/21. Findings: Heart size normal. No focal air space disease, pulmonary edema, pleural effusion or suspect ed pneumothorax. There are scattered calcified granulomas of the lungs. No acute osseous abnormality. Impression: 1: No acute cardiopulmonary disease. Reviewed, dictated and finalized at location B. Impression: 1: No acute cardiopulmonary disease.
--- NOTE | ~2022-06-16 | CT_ITS ---
EXAMINATION:CT diagnostic chest wo con DATE: 06/16/2022 15:22 INDICATION: Chronic dyspnea on exertion. TECHNIQUE: Computed tomography (CT) of the chest was performed without intravenous contrast. Automate d exposure control and iterative reconstruction technique were employed. The dose-length product (DLP ) was 455.04 mGy-cm. COMPARISON: Chest 2 views 06/16/2022 FINDINGS: Calcified bilateral lung nodules and calcified hilar and mediastinal lymph nodes are consis tent with old granulomatous disease. There is mild peripheral scarring at the lung apices. There is m inimal atelectasis/scarring in paraspinal right lower lobe. No bronchiectasis or honeycombing. There is mild atelectasis in lingula. No pleural effusion. The heart size is normal. No pericardial effusio n. There is diffuse hepatic steatosis. Calcifications in the spleen are consistent with old granuloma tous disease. There are changes of anterior fusion procedure in cervical spine. There is moderate tho racic spondylosis. IMPRESSION: 1. Mild atelectasis and scarring in the lungs. Reviewed, dictated and finalized at location A.
--- NOTE | ~2022-06-16 | NM_ITS ---
EXAMINATION: NM pulmonary perfusion DATE: 06/16/2022 15:29 INDICATION: Dyspnea on exertion with chest tightness TECHNIQUE: 5 mCi Tc-99m MAA by intravenous route. Scintigraphic images of the chest were obtained. COMPARISON: Chest radiograph and CT dated 06/16/2022 FINDINGS: There is relatively homogeneous perfusion throughout the lungs. No discrete perfusion defects identi fied. IMPRESSION: 1. Normal study. Very low probability for pulmonary embolism. Reviewed, dictated and finalized at location A.
== END 2022-06-16 14:40 | disposition home or self-care (01) ==
LOC: ANHIMG 14:42
PROVIDERS: PCP Nurse Practitioner Family; Visit Provider Nurse Practitioner Family
DX: R06.09 Other forms of dyspnea (principal); B94.8 Sequelae of other specified infectious and parasitic diseases; R94.2 Abnormal results of pulmonary function studies; R07.89 Other chest pain
CPT/HCPCS: 71046; 71250; 78580; A9540

== ENCOUNTER 2022-06-23 14:27 | Outpatient (CLI) | payer OTHER, SELFPAY ==
[2022-06-23 14:56] LABS: Iron 75 ug/dL (37-170)
[2022-06-23 15:06] LABS: Percent Iron Saturation 23 % (20-50)
[2022-06-23 15:11] LABS: Free T4 Free Thyroxine 0.83 ng/mL (0.78-2.19)
[2022-06-28 00:17] LABS: Vitamin D 1,25 (OH)2 Total 53 pg/mL (18-72); Vitamin D2 1,25 (OH)2 <8 pg/mL; Vitamin D3 1,25 (OH)2 53 pg/mL
== END 2022-06-23 14:28 | disposition home or self-care (01) ==
LOC: ANHLAB 14:28
PROVIDERS: PCP Nurse Practitioner Family; Visit Provider Nurse Practitioner Family
DX: I48.91 Unspecified atrial fibrillation (principal); R53.83 Other fatigue
CPT/HCPCS: 36415; 82607; 82652; 82728; 83540; 83550; 84439; 84443

== ENCOUNTER 2022-09-23 07:39 | Outpatient (CLI) | payer OTHER, SELFPAY ==
--- NOTE | ~2022-09-23 | MM_ITS ---
EXAMINATION: MM screening [facility] BI w danna HISTORY: Screening mammogram TECHNIQUE: Craniocaudal and mediolateral oblique 3-D tomosynthesis images were obtained and synthetic 2-D images were generated. CAD analysis was submitted and interpreted. COMPARISON: 07/01/2021, 11/23/2020, 04/27/2020, 09/08/2019, 09/06/2019 BREAST PARENCHYMAL COMPOSITION: There are scattered areas of fibroglandular density. FINDINGS: A stable asymmetry is present in the outer right breast on the craniocaudal view. No suspic ious mass, calcification, or architectural distortion are identified in either breast to suggest jaleel gnancy. There has been no suspicious interval change. IMPRESSION: 1. No mammographic evidence of malignancy. 2. Recommend routine screening mammography in one year. BI-RADS Category 2: Benign finding(s). Reviewed, dictated and finalized at location A. NTEER MANAGER
== END 2022-09-23 07:40 | disposition home or self-care (01) ==
LOC: CHSIMG 07:42
PROVIDERS: PCP Nurse Practitioner Family; Visit Provider Nurse Practitioner Family
DX: Z12.31 Encounter for screening mammogram for malignant neoplasm of breast (principal)
CPT/HCPCS: 77063; 77067

== ENCOUNTER 2023-04-19 20:58 | Emergency (ER) | payer OTHER, SELFPAY | END 2023-04-19 21:20 | disposition home or self-care (01) | LOC: CHSED 04-20 07:42 | PROVIDERS: Emergency Provider Emergency Medicine; PCP Nurse Practitioner Family | DX: S85.9 Injury of unspecified blood vessel at lower leg level (principal); E11.9 Type 2 diabetes mellitus without complications; I51.9 Heart disease, unspecified; X58.XXXA Exposure to other specified factors, initial encounter | CPT/HCPCS: 99281 ==

== ENCOUNTER 2023-06-16 14:43 | Outpatient (CLI) | payer OTHER, SELFPAY ==
--- NOTE | ~2023-06-16 | XR_ITS ---
XR foot RT standing 2V 06/16/2023 15:35 Indication: Medial pain Procedure: 2 views right foot Comparison: 07/07/2015 Findings: There are prominent degenerative calcaneal enthesophytes. There is osteoarthritis of the fi rst metatarsal phalangeal joint. No acute fracture or traumatic malalignment. No focal soft tissue ab normality. No foreign bodies. There is subtle atherosclerosis. Impression: 1: Mild osteoarthritis first metatarsophalangeal joint. 2: Large calcaneal enthesophytes. Reviewed, dictated and finalized at location B. Impression: 1: Mild osteoarthritis first metatarsophalangeal joint. 2: Large calcaneal enthesophytes.
[2023-06-16 15:22] LABS: Basophils Absolute Auto 0.05 K/mm3 (0.00-0.10); Basophils Percent Auto 0.7 % (0.0-1.0); Eosinophils Absolute Auto 0.07 K/mm3 (0.02-0.50); Hemoglobin 13.4 g/dL (12.0-15.0); Immature Granulocyte Absolute 0.01 K/mm3 (0.00-0.00); Immature Granulocyte Percent A 0.1 % (0.0-0.0); Lymphocytes Absolute Auto 2.15 K/mm3 (1.10-4.50); Mean Corpuscular HGB Conc 32.7 g/dL (32.0-36.0); Mean Corpuscular Hemoglobin 31.3 pg (27.0-31.0); Mean Corpuscular Volume 95.8 fL (78.0-102.0); Mean Platelet Volume 10.8 fl (9.2-11.8); Monocytes Absolute Auto 0.43 K/mm3 (0.10-0.90); Monocytes Percent Auto 6.2 % (2.0-11.0); Neutrophils Absolute Auto 4.2 K/mm3 (1.7-7.2); Platelet Count Result 287 K/mm3 (150-420); Red Blood Count 4.28 M/mm3 (4.20-5.40); Red Cell Distribution Width 13.2 % (11.6-14.4); White Blood Count 6.9 K/mm3 (4.8-10.8)
[2023-06-16 15:31] LABS: Uric Acid 2.8 mg/dL (2.6-6.0)
[2023-06-16 15:53] LABS: Alanine Aminotransferase 28 U/L (14-59); Albumin Level 3.7 g/dL (3.4-5.0); Alkaline Phosphatase 94 U/L (46-116); Anion Gap 11 mmol/L (8-16); Aspartate Amino Transferase 13 U/L (15-37); Bilirubin,Total 0.4 mg/dL (0.00-1.00); Blood Urea Nitrogen 15 mg/dL (7-18); Calcium 9.3 mg/dL (8.5-10.1); Carbon Dioxide 26 mmol/L (21-32); Chloride 107 mmol/L (98-108); Estimated Glomerular Filt Rate > 60; Glucose 97 mg/dL (70-99); Osmolality Calculated 298 mOsm/kg (285-295); Potassium 4.1 mmol/L (3.5-5.1); Sodium 144 mmol/L (136-145); Total Protein 6.7 g/dL (6.4-8.2)
[2023-06-17 12:01] LABS: Cholesterol 181 mg/dL (0-200); HDL Direct 40 mg/dL (40-60); LDL Cholesterol Calculated 102 mg/dL (<130); Triglycerides 194 mg/dL (0-150)
== END 2023-06-16 14:44 | disposition home or self-care (01) ==
PROVIDERS: PCP Nurse Practitioner Family; Visit Provider Nurse Practitioner Family
DX: M79.671 Pain in right foot (principal); E66.9 Obesity, unspecified; M19.071 Primary osteoarthritis, right ankle and foot; M77.31 Calcaneal spur, right foot
CPT/HCPCS: 36415; 73620; 80053; 80061; 84550; 85025

== ENCOUNTER 2023-09-07 07:39 | Outpatient (CLI) | payer OTHER, SELFPAY | END 2023-09-07 07:40 | disposition home or self-care (01) | LOC: CHSAUDIO 07:41 | PROVIDERS: PCP Nurse Practitioner Family; Visit Provider Nurse Practitioner Family | DX: H90.3 Sensorineural hearing loss, bilateral (principal) | CPT/HCPCS: 92557; 92567 ==

== ENCOUNTER 2023-12-22 13:56 | Outpatient (CLI) | payer OTHER, SELFPAY ==
[2023-12-22 14:27] LABS: Basophils Absolute Auto 0.07 K/mm3 (0.00-0.10); Basophils Percent Auto 0.9 % (0.0-1.0); Eosinophils Absolute Auto 0.06 K/mm3 (0.02-0.50); Eosinophils Percent Auto 0.8 % (1.0-6.0); Hematocrit 41.6 % (35.0-49.0); Hemoglobin 13.2 g/dL (12.0-15.0); Immature Granulocyte Absolute 0.03 K/mm3 (0.00-0.00); Immature Granulocyte Percent A 0.4 % (0.0-0.0); Lymphocytes Absolute Auto 2.21 K/mm3 (1.10-4.50); Lymphocytes Percent Auto 27.6 % (18.0-42.0); Mean Corpuscular HGB Conc 31.7 g/dL (32-36); Mean Corpuscular Hemoglobin 30.3 pg (27.0-31.0); Mean Corpuscular Volume 95.4 fL (78.0-102.0); Mean Platelet Volume 11.1 fl (9.2-11.8); Monocytes Absolute Auto 0.47 K/mm3 (0.10-0.90); Monocytes Percent Auto 5.9 % (2.0-11.0); Neutrophils Absolute Auto 5.16 K/mm3 (1.70-7.20); Neutrophils Percent Auto 64.4 % (50.0-70.0); Platelet Count Result 284 K/mm3 (150-420); Red Blood Count 4.36 M/mm3 (4.20-5.40); Red Cell Distribution Width 13.3 % (11.6-14.4)
[2023-12-22 14:35] LABS: Appearance Urine Clear (Clear); Bilirubin Urine Negative (Negative); Blood Urine Negative (Negative); Color Urine Yellow (Yellow); Glucose Urine UA 3+ (Negative); Ketones Urine Negative (Negative); Leukocyte Esterase Ur Negative LEU/UL (Negative); Nitrate Urine Negative (Negative); Protein Urine Negative (Negative); Urobilinogen Urine 0.2 mg/dL (0.2-1.0)
[2023-12-22 15:12] LABS: Add Urine Microscopic? YES; RBC Urine None seen /hpf (0-2)
[2023-12-22 15:13] LABS: Bacteria Urine Trace /hpf; Squamous Epithelial Cell Urine Few /hpf (Few); WBC Urine None seen /hpf (0-3)
[2023-12-22 15:27] LABS: Alanine Aminotransferase 26 U/L (14-59); Albumin Level 3.7 g/dL (3.4-5.0); Alkaline Phosphatase 100 U/L (46-116); Anion Gap 12 mmol/L (4-12); Aspartate Amino Transferase 13 U/L (15-37); Bilirubin,Total 0.4 mg/dL (0.00-1.00); Blood Urea Nitrogen 16 mg/dL (7-18); Calcium 9.1 mg/dL (8.5-10.1); Carbon Dioxide 27 mmol/L (21-32); Chloride 107 mmol/L (98-108); Estimated Glomerular Filt Rate > 60; Glucose 133 mg/dL (70-99); Iron 82 ug/dL (50-170); Magnesium 2.1 mg/dL (1.8-2.4); Osmolality Calculated 305 mOsm/kg (285-295); Sodium 146 mmol/L (136-145); Total Protein 6.7 g/dL (6.4-8.2)
[2023-12-24 10:13] LABS: Hemoglobin A1C 5.9 % (<5.7)
[2023-12-29 20:47] LABS: Vitamin D 25 Hydroxy 11 ng/mL (30-100)
== END 2023-12-22 13:57 | disposition home or self-care (01) ==
LOC: CHSLAB 13:59
PROVIDERS: PCP Nurse Practitioner Family; Visit Provider Nurse Practitioner Family
DX: R42 Dizziness and giddiness (principal); R73.09 Other abnormal glucose; Z79.899 Other long term (current) drug therapy
CPT/HCPCS: 36415; 80053; 81001; 82306; 83036; 83540; 83735; 85025

== ENCOUNTER 2023-12-29 13:47 | Outpatient (CLI) | payer OTHER, SELFPAY ==
--- NOTE | ~2023-12-29 | MM_ITS ---
EXAMINATION: MM screening porter BI w danna HISTORY: Screening mammogram TECHNIQUE: Craniocaudal and mediolateral oblique 3-D tomosynthesis images were obtained and synthetic 2-D images were generated. CAD analysis was submitted and interpreted. COMPARISON: 10/10/2022 bilateral screening mammogram 07/01/2021 diagnostic right mammogram and limited right breast ultrasound 11/23/2020 diagnostic bilateral mammogram and limited right breast ultrasound 04/27/2020 diagnostic right mammogram and limited right breast ultrasound 09/08/2019 diagnostic right mammogram and limited right breast ultrasound 09/06/2019 bilateral screening mammogram BREAST PARENCHYMAL COMPOSITION: There are scattered areas of fibroglandular density. FINDINGS: There is no evidence of suspicious mass, calcification, or architectural distortion to sugg est malignancy in either breast. There has been no suspicious interval change. IMPRESSION: 1. No mammographic evidence of malignancy. 2. Recommend routine screening mammography in one year. BI-RADS Category 1: Negative Reviewed, dictated and finalized at location A.
== END 2023-12-29 13:48 | disposition home or self-care (01) ==
LOC: CHSIMG 13:48
PROVIDERS: PCP Nurse Practitioner Family; Visit Provider Nurse Practitioner Family
DX: Z12.31 Encounter for screening mammogram for malignant neoplasm of breast (principal)
CPT/HCPCS: 77063; 77067

== ENCOUNTER 2024-03-11 09:00 | Outpatient (RCR) | payer OTHER, SELFPAY | END 2024-03-11 09:10 | disposition other institution (70) | LOC: ANHAUDASC 09:00 | PROVIDERS: PCP Nurse Practitioner Family; Visit Provider Nurse Practitioner Family | DX: Z46.1 Encounter for fitting and adjustment of hearing aid (principal) | CPT/HCPCS: 99199; V5261 ==

== ENCOUNTER 2025-02-24 06:50 | Outpatient (CLI) | payer MEDICARE, SELFPAY ==
--- OUTSIDE RECORDS SUMMARY | 2025-02-24 06:53 | XMS_ITS | Referral Summary ---
Author Organization [facility] [place] [address] Address [address] [place] [address] Care Team Providers Care Apartment Leasing Specialist Name Role Phone Melony Nolasco NP Primary Care Provider [phone] [phone] Allergies No known active allergies Medications albuterol HFA (PROVENTIL HFA,VENTOLIN HFA,PROAIR HFA) 90 mcg/actuation inhaler Inhale 2 puffs every 6 (six) hours as needed for wheezing Active fluticasone propionate (FLONASE) 50 mcg/actuation nasal spray Administer 1 spray into each nostril daily Active Anoro Ellipta 62.5-25 mcg/actuation blister with device 2 Active Restasis 0.05 % ophthalmic emulsion Administer 1 drop into both eyes every 12 (twelve) hours 3 Active Jardiance 10 mg tablet TAKE ONE TABLET BY MOUTH DAILY 30 tablet 11 4 Active tirzepatide, weight loss, (ZEPBOUND) 2.5 mg/0.5 mL pen injector Inject 0.5 mL (2.5 mg total) under the skin every 7 days 1 mL 4 Active rivaroxaban (Xarelto) 20 mg tablet TAKE ONE TABLET BY MOUTH DAILY IN THE EVENING WITH FOOD 30 tablet 11 4 Active metoprolol XL (TOPROL-XL) 25 mg extended release tablet TAKE ONE TABLET BY MOUTH DAILY 90 tablet 2 4 Active Entresto 49-51 mg tablet TAKE ONE TABLET BY MOUTH TWICE A DAY 60 tablet 5 5 Active Active Problems Problem Noted Date Diagnosed Date Varicose veins of lower extremity with pain, rig ht 06/05/2023 Assessment & Plan (06/05/2023 11:50 AM CDT): Right lower extremity CEAP C3 disease symptomatic varicosities by compression therapy. Risks benefits alternatives to right GSV ablation phlebectomies discussed, risks including bleeding, infection, DVT/PE, femoral injury to surrounding tissues, , need further surgery. She wished to proceed. Morbid (severe) obesity due to excess calories 0 01/29/2022 Body mass index 40.0-44.9, adult ([facility]) 01/29 Social History Tobacco Use Types Packs/Day Years Used Date Smoking Tobacco: Former Tobacco Cessation:Counseling Given: Not Answered Personal Safety Answer Date Recorded Getting School Help Needed Not on file 09/22 Comments Unknown Sex and Gender Information Value Date Recorded Sex Assigned at Not on file Legal Sex Female 2:06 PM CDT Gender Identity Not on file Sexual Orientation Not on file Last Filed Vital Signs Vital Sign Reading Time Taken Comments Blood Pressure 126/70 05/25/2024 11:32 AM CDT Pulse 71 05/25/2024 11:32 AM CDT Temperature - - Respiratory Rate - - Oxygen Saturation 97% 05/25/2024 11:32 AM CDT Inhaled Oxygen Concentration - - Weight 104.3 kg (230 lb) 05/25/2024 11:32 AM CDT Height 154.9 cm (5' 1) 05/25/2024 11:32 AM CDT Body Mass Index 43.46 05/25/2024 11:32 AM CDT Plan of Treatment Not on file Insurance [employer] OPEN ACCESS [employer] OPEN ACCESS Care Teams Apartment Leasing Specialist Relationship Specialty Start Date End Date Melony Nolasco NP [address] [place] [address] PCP - General Nurse Practitioner 01/24/22
--- OUTSIDE RECORDS SUMMARY | 2025-02-24 06:53 | XMS_ITS | Clinical Summary ---
Author Organization [facility] [place] [address] Address [address] [place] [address] Care Team Providers Care Banking Attorney Name Role Phone Melony Nolasco NP Primary Care Provider [phone] [phone] Allergies No known active allergies Medications albuterol [...] 0 01/29/2022 Body mass index 40.0-44.9, adult ([facility]) 01/29 Surgical History Surgery Date Site/Laterality Comments SECTION 09/21/1994 - 09/20/1995 CHOLECYSTECTOMY Medical History Medical History Date Comments COPD (chronic obstructive pulmonary disease) (HC C) Hypertension Thyroid disease Sleep apnea Family History Medical History Relation Name Comments Alcohol abuse Father Heart attack Father Heart disease Father Alzheimer's disease Mother Asthma Mother Hypertension Other Relation Name Status Comments Father Mother Other Social History Tobacco Use Types Packs/Day Years Used Date Smoking Tobacco: Former Tobacco Cessation:Counseling Given: Not Answered Personal Safety Answer Date Recorded Getting School Help Needed Not on file 09/22 Comments Unknown Sex and Gender Information Value Date Recorded Sex Assigned at Not on file Legal Sex Female 2:06 PM CDT Gender Identity Not on file Sexual Orientation Not on file Obstetrics History Last Filed Vital Signs Vital Sign Reading [...] 05/25/2024 11:32 AM CDT Plan of Treatment Health Maintenance Due Date Last Done Comments Breast Cancer Screening-Mammogram 1959 Cervical Cancer Screening 1959 Colon Cancer Screening-Colonoscopy 1959 Depression Screening 1959 Fall Risk Assessment 1959 Hepatitis C Screening 1959 Osteoporosis Screening-Bone Density Scan 1959 Hepatitis B Screening 1977 Pneumococcal vaccine 65+ (1 of 2 - PCV) 1978 Zoster Vaccine (1 of 2) 2009 Covid-19 Vaccine (3 - season) 2024, 10/06/2020 Well Visit 65+ 2024 Influenza Vaccine (Season Ended) 2025 10/10/19, 08/22/2019 DTaP/Tdap/Td Vaccine (2 - Td or Tdap) 08/22/202910/2018 Insurance [employer] OPEN ACCESS [employer] OPEN ACCESS Care Teams Banking Attorney Relationship Specialty Start Date End Date Melony Nolasco [employer] [address] [place] [address] PCP - General Nurse Practitioner 01/24/22
[2025-02-24 07:03] LABS: Basophils Absolute Auto 0.07 K/mm3 (0.00-0.10); Basophils Percent Auto 1.4 % (0.0-1.0); Eosinophils Absolute Auto 0.13 K/mm3 (0.02-0.50); Eosinophils Percent Auto 2.5 % (1.0-6.0); Hematocrit 41.4 % (35.0-42.0); Hemoglobin 13.2 g/dL (11.7-13.8); Immature Granulocyte Absolute 0.03 K/mm3 (0.00-0.00); Immature Granulocyte Percent A 0.6 % (0.0-0.0); Lymphocytes Absolute Auto 2.14 K/mm3 (1.10-4.50); Lymphocytes Percent Auto 41.9 % (18.0-42.0); Mean Corpuscular HGB Conc 31.9 g/dL (32-36); Mean Corpuscular Volume 97.2 fL (78.0-102.0); Mean Platelet Volume 10.3 fl (9.2-11.8); Monocytes Absolute Auto 0.43 K/mm3 (0.10-0.90); Monocytes Percent Auto 8.4 % (2.0-11.0); Neutrophils Absolute Auto 2.31 K/mm3 (1.70-7.20); Neutrophils Percent Auto 45.2 % (50.0-70.0); Platelet Count Result 248 K/mm3 (150-420); Red Blood Count 4.26 M/mm3 (4.20-5.40); White Blood Count 5.1 K/mm3 (4.8-10.8)
[2025-02-24 12:22] LABS: Alanine Aminotransferase 17 U/L (6-35); Albumin Level 3.9 g/dL (3.5-5.1); Alkaline Phosphatase 87 U/L (38-126); Anion Gap 3 mmol/L (4-12); Aspartate Amino Transferase 19 U/L (14-36); Bilirubin,Total 0.7 mg/dL (0.2-1.3); Blood Urea Nitrogen 17 mg/dL (7-17); Carbon Dioxide 28 mmol/L (22-30); Chloride 109 mmol/L (98-107); Cholesterol 194 mg/dL (0-200); Estimated Glomerular Filt Rate > 60; Glucose 93 mg/dL (65-110); HDL Direct 48 mg/dL; LDL Cholesterol Calculated 127 mg/dL (<130); Magnesium 2.1 mg/dL (1.6-2.3); Osmolality Calculated 291 mOsm/kg (285-295); Potassium 4.4 mmol/L (3.4-5.0); Sodium 140 mmol/L (137-145); Total Protein 6.5 g/dL (6.3-8.2); Triglycerides 94 mg/dL (<150)
[2025-02-24 14:02] LABS: Hemoglobin A1C 5.8 % (<5.7)
== END 2025-02-24 06:51 | disposition home or self-care (01) ==
LOC: CHSLAB 06:51
PROVIDERS: PCP Nurse Practitioner Family; Visit Provider Nurse Practitioner Family
DX: E03.9 Hypothyroidism, unspecified (principal); E66.9 Obesity, unspecified; R25.2 Cramp and spasm; Z13.1 Encounter for screening for diabetes mellitus
CPT/HCPCS: 36415; 80053; 80061; 83036; 83735; 84443; 85025

== ENCOUNTER 2025-03-02 13:51 | Outpatient (CLI) | payer MEDICARE, OTHER, SELFPAY ==
--- NOTE | ~2025-03-02 | MM_ITS ---
EXAMINATION: MM screening porter BI w danna HISTORY: Screening TECHNIQUE: Craniocaudal and mediolateral oblique 3-D tomosynthesis images were obtained and synthetic 2-D images were generated. CAD analysis was submitted and interpreted. COMPARISON: Comparison to multiple prior studies sequentially, with oldest reviewed study dated 08/21. BREAST PARENCHYMAL COMPOSITION: Not dense: There are scattered areas of fibroglandular density. FINDINGS: There is no evidence of suspicious mass, calcification, or architectural distortion to sugg est malignancy in either breast. There has been no suspicious interval change. IMPRESSION: 1. No mammographic evidence of malignancy. 2. Recommend routine screening mammography in one year. BI-RADS Category 1: Negative Reviewed, dictated and finalized at location B.
--- NOTE | ~2025-03-02 | CT_ITS ---
CT Scan of the Chest without Contrast: Clinical Indication: Lung cancer screening, nicotine dependence Technique: Contiguous sections were acquired throughout the chest without intravenous contrast. Dose reduction technique was used on this scan by utilizing automated exposure control and iterative recon struction technique. The dose-length product (DLP) was 217.27 mGy-cm. COMPARISON: 06/16/2022 Findings: There is no evidence of any significant mediastinal, hilar or axillary lymphadenopathy. Small calcifi ed mediastinal and hilar lymph nodes are present. There is no evidence of pleural or pericardial effusion. Scattered calcified granulomas are present. No noncalcified pulmonary nodule seen. Images through the upper abdomen reveal no abnormalities. Impression: Lung RADS 2: Benign appearance. 12 month follow-up screening CT advised. Reviewed, dictated and finalized at [facility]. Impression: Lung RADS 2: Benign appearance. 12 month follow-up screening CT advised.
--- NOTE | ~2025-03-02 | DEXA_ITS ---
Bone Density Report Name: LIZETH PATE Age: 64 Sex: Female Ethnicity: White Date of : 1960 Indication: postmenopausal; screening for osteoporosis; prior fracture; asthma or emphysema; Referring Provider: CARLOS MAGDALENO Study: Bone densitometry was performed. Exam Date: March 02, 2025 Accession number: [id number] Bone Density: Region BMD T-score Z-score Classification AP Spine(L1, L2, L3) 0.992 -0.2 1.5 Normal Femoral Neck (Left) 0.670 -1.6 -0.1 Osteopenia Total Hip (Left) 0.968 0.2 1.5 Normal Femoral Neck (Right) 0.864 0.1 1.7 Normal Total Hip (Right) 1.077 1.1 2.4 Normal Femoral Neck Mean 0.767 -0.7 0.8 Normal Total Hip Mean 1.022 0.7 1.9 Normal World Health Organization criteria for BMD impression classify patients as: Normal (T-score at or above -1.0), Osteopenia (T-score between -1.0 and -2.5), or Osteoporosis (T-score at or below -2.5). 10-year Fracture Risk(1): Major Osteoporotic Fracture 14% Hip Fracture 1.5% Reported Risk Factors: [place] (), Neck BMD=0.670, BMI=40.9, previous fracture (1) FRAX(R) Version 3.08. Fracture probability calculated for an untreated patient. Fracture probability may be lower if the patient has received treatment. Clinical Information Provided by Patient: Has had a low trauma fracture Has the following medical conditions: Asthma or Emphysema Patient maximum height was 62 Menopause Age: 34 No regular weight bearing exercise Does not regularly consume dairy products Drinks caffeinated beverages Onset of menses at age 13 Number of children 2 Impression: The patient has low bone mass, based on the Left Femoral Neck T-score. The patient has risk factors, including: previous fracture. Discussion: BONE DENSITY IS LOW AT ONE OR MORE SKELETAL SITES. This patient's lowest T-score is low at one or more skeletal sites. It meets the World Health Organization's (WHO) criteria for ?low bone mass? (T-score between -1.0 and -2.5). The patient's 10-year risk of fracture as calculated by FRAX is less than the threshold where pharmacological therapy is recommended by the National Osteoporosis Foundation (NOF). However, all treatment decisions require clinical judgment and consideration of individual patient factors, including patient preferences, comorbidities, previous drug use, risk factors not captured in the FRAX model (e.g., frailty, falls, vitamin D deficiency, increased bone turnover, interval significant decline in bone density) and possible under or overestimation of fracture risk by FRAX. The patient should follow a healthful lifestyle (good nutrition with adequate calcium and vitamin D, and appropriate weight-bearing exercise). Follow-Up: Consider repeating this study in 2 to 3 years to reassess this patient's status, or sooner if there is some new clinical indication. Reported by: NANCY on 03/02/2025 2:29:00 PM. Reviewed, dictated and finalized at location A.
--- OUTSIDE RECORDS SUMMARY | 2025-03-02 14:31 | XMS_ITS | Clinical Summary ---
Author Organization [facility] [place] [address] Address [address] [place] [address] Care Team Providers Care Industrial Sweeper Cleaner Name Role Phone Melony Nolasco NP Primary Care Provider [phone] [phone] Allergies No known active allergies Medications albuterol HFA (PROVENTIL HFA,VENTOLIN HFA,PROAIR HFA) 90 mcg/actuation inhaler Inhale 2 puffs every 6 (six) hours as needed for wheezing Active fluticasone propionate (FLONASE) 50 mcg/actuation nasal spray Administer 1 spray into each nostril daily Active Anoro Ellipta 62.5-25 mcg/actuation blister with device 09/19/20 22 Active Restasis 0.05 % ophthalmic emulsion Administer 1 drop into both eyes every 12 (twelve) hours 02/08/20 23 Active tirzepatide, weight loss, (ZEPBOUND) 2.5 mg/0.5 mL pen injector Inject 0.5 mL (2.5 mg total) under the skin every 7 days 1 mL 05/30/20 24 Active rivaroxaban (Xarelto) 20 mg tablet TAKE ONE TABLET BY MOUTH DAILY IN THE EVENING WITH FOOD 30 tablet 11 06/03/20 24 Active metoprolol XL (TOPROL-XL) 25 mg extended release tablet TAKE ONE TABLET BY MOUTH DAILY 90 tablet 2 08/05/20 24 Active Entresto 49-51 mg tablet TAKE ONE TABLET BY MOUTH TWICE A DAY 60 tablet 5 12/16/19 25 Active empagliflozin (Jardiance) 10 mg tablet TAKE ONE TABLET BY MOUTH DAILY 90 tablet 02/28/20 25 Active Jardiance 10 mg tablet TAKE ONE TABLET BY MOUTH DAILY 30 tablet 11 02/24/20 24 025 Discontinued Active Problems Problem Noted Date Diagnosed Date [...] 0 01/29/2022 Body mass index 40.0-44.9, adult ([facility]) 01/29 Surgical History Surgery Date Site/Laterality Comments [...] (2 - Td or Tdap) 08/22/202910/2018 Insurance [employer] OPEN ACCESS [employer] OPEN ACCESS Care Teams Industrial Sweeper Cleaner Relationship Specialty Start Date End Date Melony Nolasco NP [address] [place] [address] PCP - General Nurse Practitioner 01/24/22
--- OUTSIDE RECORDS SUMMARY | 2025-03-02 14:31 | XMS_ITS | Referral Summary ---
Author Organization [facility] [place] [address] Address [address] [place] [address] Care Team Providers Care Inventory Checker Name Role Phone Melony Nolasco NP Primary Care Provider [phone] [phone] Allergies No known active allergies Medications albuterol [...] 0 01/29/2022 Body mass index 40.0-44.9, adult ([facility]) 01/29 Social History Tobacco Use Types Packs/Day [...] Plan of Treatment Not on file Insurance [facility] OPEN ACCESS [employer] OPEN ACCESS Care Teams Inventory Checker Relationship Specialty Start Date End Date Melony Nolasco NP [address] [place] [address] PCP - General Nurse Practitioner 01/24/22
== END 2025-03-02 13:52 | disposition home or self-care (01) ==
LOC: CHSIMG 13:56
PROVIDERS: PCP Nurse Practitioner Family; Visit Provider Nurse Practitioner Family
DX: Z12.31 Encounter for screening mammogram for malignant neoplasm of breast (principal); Z87.891 Personal history of nicotine dependence; Z78.0 Asymptomatic menopausal state; Z12.2 Encounter for screening for malignant neoplasm of respiratory organs; M85.88 Other specified disorders of bone density and structure, other site
CPT/HCPCS: 71271; 77063; 77067; 77080

== ENCOUNTER 2025-08-21 09:41 | Emergency (ER) | payer MEDICARE, OTHER, SELFPAY ==
[2025-08-21] VITALS (10 sets, daily range): BP systolic 104–132; BP diastolic 49–85; PULSE 67–89; RESP 14–23; TEMP 36.6–36.8; O2SAT 93–97
--- NOTE | ~2025-08-21 | XR_ITS ---
Examination: XR chest 1V portable Clinical History: Palpitation Comparison: CT chest Technique: Portable AP Findings: Heart size normal. Lungs clear. Mild hyperinflation. Small calcified granulomata. No acute bony abnormality. Chronic right rib fractures. IMPRESSION: 1. No acute cardiopulmonary findings given portable technique. Reviewed, dictated and finalized at location R. ER BOX OPERATOR
--- NOTE | 2025-08-21 09:44 | ECG_ITS ---
Test Date: 2025-08-21 09:49:15 Measurements Intervals [place] Rate: 77 P: 55 AL: 167 QRS: 49 QRSD: 89 T: 36 QT: 361 QTc: 409 Interpretive Statements SINUS RHYTHM NORMAL ECG No previous ECG available for comparison Electronically Signed On 08-21-2025 10:47:11 LAB ANALYST by Jonathan Lozano D.O.
--- NOTE | 2025-08-21 09:47 | ED.ARRPALP ---
HPI - Arrhythmia/Palpitations General Chief Complaint: Arrhythmia/Palpitations Stated Complaint: arrhythmia Time Seen by Provider: 08/21/25 09:46 Source: patient Mode of arrival: ambulatory Limitations: no limitations History of Present Illness HPI narrative: 65 years old white female came to the ED by private car from home telling me that her watch and her phone went of at 330 this morning, heart rate was running in the 120 th lasted for about 30 minutes, associated with palpitation, slight dizziness and slight chest tightness at that time. Patient went to sleep and the workup again with the same symptoms and heart rate was running in the 115 at that time lasted for roughly a 1 hour. In the ED patient is asymptomatic. History of atrial fibrillation on Xarelto and beta-carlie Reports a lot of stress lately. History of hypertension. Patient does not smoke or use drugs, drink occasionally. Patient lives by herself Related Data Home Medications ?Medication ?Instructions ?Recorded ?Confirmed ?Last Taken ?Type empagliflozin 10 mg tablet 10 mg PO DAILY 04/07/22 02/14/25 03/19/22 History (Jardiance) metoprolol succinate 25 mg 25 mg PO DAILY 04/07/22 02/14/25 03/19/22 History tablet,extended release 24 hr sacubitril 49 mg-valsartan 51 mg 1 tablet PO BID 04/07/22 02/14/25 03/19/22 History tablet (Entresto) Allergies Allergy/AdvReac Type Severity Reaction Status Date / Time No Known Allergies Allergy Unknown Verified 02/24/25 10:28 Review of Systems Review of Systems: All systems reviewed & are unremarkable except as noted in HPI and below PMFSH Past Medical History Medical History COPD (chronic obstructive pulmonary disease) Peroneal tendinitis of right lower extremity HTN (hypertension) Back pain Sleep apnea Hypothyroidism Osteoarthritis of left hip Surgical History Surgical History Hx of section 1994 Family History Family History Mother Familial Alzheimer's disease of late onset Asthma Father Acute myocardial infarction Family history of coronary artery disease Alcohol abuse Father Acute myocardial infarction Family history of coronary artery disease Sibling Alcohol abuse Other Asthma Other Family history of alcoholism Family history of arthritis Hypertension Social History Social History Smoking packs per day: 2.5 Smoking cigarettes per day: 50.0 Years smoked: 14 Smoking pack-years: 35.00 Smoking status: Former smoker Tobacco type: cigarettes Smoking end date: 09/21/88 Additional smoking assessment comments: quit 1986 Alcohol intake: never Alcohol use details: occasional Substance use: never Substance use type: does not use Last use: 1987 Lack of Transportation: No Lack of Food: Never True Current Housing: I Have Housing Concerned About Future Housing: No Difficulty Paying Gas/Electric Bills: No Difficulty Paying for Meds: No Currently Unemployed: No Education: Decline to Answer Difficulty w/ Childcare or Family Care: No Living arrangements: with family Spiritual care concerns: No Exam Narrative: General appearance: Well-developed, well-nourished Skin: Normal color Head: Normocephalic, nontraumatic Eyes: Clear conjunctiva ENT: Oropharynx normal, ears normal, nose normal Neck: Supple, nontender Chest and respiratory: Airway patent, no respiratory distress, no accessory muscle use Heart: Regular rate/rhythm Abdomen: Soft, nontender, no organomegaly, quiet bowel sounds Vascular: Normal peripheral pulses, normal capillary refill. Musculoskeletal: Normal range of motion, nontender back Neurologic: Alert and oriented ?3, [employer] is normal as tested, no gross motor deficit Course Vital Signs Vital signs: Vital Signs Temperature 36.6 C 08/21/25 09:41 Pulse Rate 89 08/21/25 09:41 Respiratory Rate 14 08/21/25 09:41 Blood Pressure 132/85 08/21/25 09:41 Pulse Oximetry 97 08/21/25 09:41 Oxygen Delivery Room Air 08/21/25 09:41 Temperature 36.6 C 08/21/25 09:41 Pulse Rate 89 08/21/25 09:41 Respiratory Rate 14 08/21/25 09:41 Blood Pressure 132/85 08/21/25 09:41 Pulse Oximetry 97 08/21/25 09:41 Oxygen Delivery Room Air 08/21/25 09:41 MDM - Arrhythmia/Palpitations MDM Narrative Medical decision making narrative: Patient came to the ED with palpitation, chest tightness and dizziness woke her up from sleep twice today. Vital signs are stable Physical examination is unremarkable Differential diagnosis include anxiety, stress, palpitation, paroxysmal AFib, electrolyte imbalance, dehydration Blood workup today includes CBC, CMP, lipase, troponin, pro BMP showed pro BNP 751 otherwise within normal limit Chest x-ray showed no acute abnormality EKG on arrival showed normal sinus rhythm, normal EKG At the time of discharge patient is asymptomatic feeling much better after having 1 mg of Ativan p.o.. Diagnosis palpitation The pt was discharged to home.the pt,s condition upon discharge was fair,education was provided to the pt in reference to the final impression,discharge study results,treatment,prognosis and need for follow up . Differential Diagnosis Differential diagnosis: Likely palpitations, anxiety and artial fibrillation Medical Records Attestation: I reviewed the patient's medical records. Lab Data Attestation: I reviewed the patient's lab results. 08/21/25 10:06 08/21/25 10:06 Labs: Lab Results 08/21/25 Range/Units 10:06 WBC 5.1 (4.8-10.8) K/mm3 RBC 4.85 (4.20-5.40) M/mm3 Hgb 15.0 H (11.7-13.8) g/dL Hct 45.9 H (35.0-42.0) % MCV 94.6 (78.0-102.0) fL MCH 30.9 (27.0-31.0) pg MCHC 32.7 (32-36) g/dL RDW 12.9 (11.6-14.4) % Plt Count 286 (150-420) K/mm3 MPV 10.6 (9.2-11.8) fl Immature Gran % (Auto) 0.4 H (0.0-0.0) % Neut % (Auto) 59.1 (50.0-70.0) % Lymph % (Auto) 32.4 (18.0-42.0) % Smyth % (Auto) 6.1 (2.0-11.0) % Eos % (Auto) 1.0 (1.0-6.0) % Baso % (Auto) 1.0 (0.0-1.0) % Lymph # (Auto) 1.65 (1.10-4.50) K/mm3 Smyth # (Auto) 0.31 (0.10-0.90) K/mm3 Eos # (Auto) 0.05 (0.02-0.50) K/mm3 Baso # (Auto) 0.05 (0.00-0.10) K/mm3 Abs Immat Gran (auto) 0.02 H (0.00-0.00) K/mm3 Absolute Neuts (auto) 3.02 (1.70-7.20) K/mm3 Absolute Nucleated RBC 0.00 (0.00-0.00) K/mm3 Nucleated RBC % 0.0 (0-0.0) % Sodium 143 (137-145) mmol/L Potassium 4.0 (3.4-5.0) mmol/L Chloride 108 H (98-107) mmol/L Carbon Dioxide 27 (22-30) mmol/L Anion Gap 8 (4-12) mmol/L BUN 13 (7-17) mg/dL Creatinine 0.78 (0.7-1.0) mg/dL Estim Creat Clear Calc Not Reportable Estimated GFR > 60 (59 - ) Glucose 131 H (65-110) mg/dL Calculated Osmolality 298 H (285-295) mOsm/kg Calcium 9.3 (8.4-10.2) mg/dL Total Bilirubin 1.0 (0.2-1.3) mg/dL AST 26 (14-36) U/L ALT 22 (6-35) U/L Alkaline Phosphatase 91 (38-126) U/L Troponin I < 0.012 (0.000-0.034) ng/mL NT-Pro-B Natriuret Pep 751 H (19.9-100) pg/mL Total Protein 7.4 (6.3-8.2) g/dL Albumin 4.5 (3.5-5.1) g/dL Imaging Data Radiologist's impression: Impressions Chest X-Ray 08/21/25 10:15 IMPRESSION: 1. No acute cardiopulmonary findings given portable technique. ECG Data EKG #1: Attestation: I personally reviewed and interpreted this ECG as follows: ECG completion date: 08/21/25 Interpretation: Normal sinus rhythm at 77 beats per minute otherwise within normal limit Critical Care Time Critical Care Time Critical Care Time: No Discharge Plan Discharge Clinical Impression: Palpitation, Stress Patient Disposition: Home Condition: Improved Instructions: Heart Palpitations (ED), Stress (ED) Additional Instructions: Return if symptoms are worsening , call your family physician/your tire repair mechanic for appointment, take Tylenol as as needed for aches and pain, continue home medications. Patient Language: Indonesian Prescriptions: No Action Xarelto 20 mg tablet 20 mg PO QPM Qty: 30 5RF Rx Instructions: must administer with evening meal Jardiance 10 mg tablet 10 mg PO DAILY Entresto 49-51 mg tablet 1 tablet PO BID metoprolol succinate 25 mg tablet extended release 24 hr 25 mg PO DAILY albuterol sulfate 90 mcg/actuation HFA aerosol inhaler See Rx Instructions .ROUTE .COMPLEX Qty: 8.5 1RF Dose Instruction: INHALE ONE PUFF BY MOUTH EVERY FOUR HOURS NEEDED FOR SHORTNESS OF BREATH OR WHEEZING Rx Instructions: INHALE ONE PUFF BY MOUTH EVERY FOUR HOURS NEEDED FOR SHORTNESS OF BREATH OR WHEEZING Anoro Ellipta 62.5-25 mcg/actuation blister with device 1 inh inhalation DAILY Qty: 60 3RF fluticasone propionate 50 mcg/actuation spray,suspension See Rx Instructions .ROUTE .COMPLEX Qty: 16 0RF Dose Instruction: SPRAY 2 SPRAYS INTO EACH NOSTRIL TWICE A DAY Rx Instructions: SPRAY 2 SPRAYS INTO EACH NOSTRIL TWICE A DAY Follow-up/Referrals: Melony Nolasco NP [Primary Care Provider, Family Practice]
--- NOTE | 2025-08-21 10:00 | PC.NURSE ---
PATIENT IS DRIVING, ERP IS AWARE AND STILL APPROVES OF [employer] ADMINISTRATION.
[2025-08-21] MEDS: LORazepam (*CRX) 1 MG TABLET PO (10:09)
[2025-08-21 10:11] LABS: Hematocrit 45.9 % (35.0-42.0); Hemoglobin 15.0 g/dL (11.7-13.8); Immature Granulocyte Percent A 0.4 % (0.0-0.0); Lymphocytes Absolute Auto 1.65 K/mm3 (1.10-4.50); Mean Corpuscular HGB Conc 32.7 g/dL (32-36); Mean Corpuscular Hemoglobin 30.9 pg (27.0-31.0); Mean Corpuscular Volume 94.6 fL (78.0-102.0); Nucleated Red Blood Cells Absolute Auto 0.00 K/mm3 (0.00-0.00); Nucleated Red Blood Cells Perc 0.0 % (0-0.0); Platelet Count Result 286 K/mm3 (150-420); Red Blood Count 4.85 M/mm3 (4.20-5.40); White Blood Count 5.1 K/mm3 (4.8-10.8)
[2025-08-21 10:26] LABS: Alanine Aminotransferase 22 U/L (6-35); Albumin Level 4.5 g/dL (3.5-5.1); Alkaline Phosphatase 91 U/L (38-126); Anion Gap 8 mmol/L (4-12); Aspartate Amino Transferase 26 U/L (14-36); Bilirubin,Total 1.0 mg/dL (0.2-1.3); Blood Urea Nitrogen 13 mg/dL (7-17); Calcium 9.3 mg/dL (8.4-10.2); Carbon Dioxide 27 mmol/L (22-30); Chloride 108 mmol/L (98-107); Estimated Glomerular Filt Rate > 60; Glucose 131 mg/dL (65-110); Osmolality Calculated 298 mOsm/kg (285-295); Potassium 4.0 mmol/L (3.4-5.0); Sodium 143 mmol/L (137-145); Total Protein 7.4 g/dL (6.3-8.2)
--- OUTSIDE RECORDS SUMMARY | 2025-08-21 10:29 | XMS_ITS | Clinical Summary ---
Author Organization [facility] [address] [facility] [address] Address [address] [facility] [address] [place] [address] Care Team Providers Care Custodian Name Role Phone Melony Nolasco NP Primary Care Provider [phone] [phone] Allergies No known active allergies Medications albuterol [...] 7 days 1 mL 05/30/20 24 Active Additional Information Patient not taking.Reason: Cost, Reported on 05/31/2025 empagliflozin (Jardiance) 10 mg tablet TAKE ONE TABLET BY MOUTH DAILY 90 tablet 3 06/30/20 25 Active metoprolol XL (TOPROL-XL) 25 mg extended release tablet TAKE ONE TABLET BY MOUTH DAILY 90 tablet 2 07/10/20 25 Active Xarelto 20 mg tablet TAKE ONE TABLET BY MOUTH DAILY IN THE EVENING WITH FOOD 30 tablet 11 07/31/20 25 Active Entresto 49-51 mg tablet TAKE ONE TABLET BY MOUTH TWICE A DAY 60 tablet 5 07/31/20 25 Active rivaroxaban (Xarelto) 20 mg tablet TAKE ONE TABLET BY MOUTH DAILY IN THE EVENING WITH FOOD 30 tablet 06/03/20 24 025 Discontinued Entresto 49-51 mg tablet TAKE ONE TABLET BY MOUTH TWICE A DAY 60 tablet 5 06/15/20 25 025 Discontinued Active Problems Problem Noted Date [...] 0 01/29/2022 Body mass index 40.0-44.9, adult (CMS/HCC) 01/29 Encounters Date Type Department Care Team Description 05/31/2025 10:45 AM CDT Office Visit [facility] Cardiology [address] [place] [address] Donnie Herndon MD Chronic diastolic congestive heart failure (HCC) (Primary Dx); PAF (paroxysmal atrial fibrillation); Chronic anticoagulation; FABRICIO on CPAP; Morbid obesity with BMI of 40.0-44.9, adult (HCC); Lipid screening from Last 3 Months Surgical History Surgery Date Site/Laterality Comments SECTION 09/21/1994 - 09/20/1995 CHOLECYSTECTOMY Medical History Medical History Date Comments COPD (chronic obstructive pulmonary disease) Hypertension Thyroid disease Sleep apnea Family History Medical History Relation Name Comments Alcohol abuse Father Heart attack Father Heart disease Father Alzheimer's disease Mother Asthma Mother Hypertension Other Relation Name Status Comments Father Mother Other Social History Tobacco Use Types Packs/Day Years Used Date Smoking Tobacco: Former Tobacco Cessation:Counseling Given: Not Answered Comments Unknown Sex and Gender Information Value Date Recorded Sex Assigned at Not on file Legal Sex Female 2:06 PM CDT Gender Identity Not on file Sexual Orientation Not on file Last Filed Vital Signs Vital Sign Reading Time Taken Comments Blood Pressure 132/76 05/31/2025 10:53 AM CDT Pulse 62 05/31/2025 10:53 AM CDT Temperature - - Respiratory Rate - - Oxygen Saturation 96% 05/31/2025 10:53 AM CDT Inhaled Oxygen Concentration - - Weight 104.3 kg (230 lb) 05/31/2025 10:53 AM CDT Height 154.9 cm (5' 1) 05/31/2025 10:53 AM CDT Body Mass Index 43.46 05/31/2025 10:53 AM CDT Plan of Treatment Health Maintenance Due Date Last Done Comments Breast Cancer Screening-Mammogram 1960 Colon Cancer Screening-Colonoscopy 1960 Depression Screening 1960 Fall Risk Assessment 1960 Hepatitis C Screening 1960 Osteoporosis Screening-Bone Density Scan 1960 Hepatitis B Screening 1977 Pneumococcal vaccine 65+ (1 of 2 - PCV) 1978 Zoster Vaccine (1 of 2) 2009 Well Visit 65+ 2024 Covid-19 Vaccine (3 - season) 2025, 10/06/2020 Influenza Vaccine (#1) 2025 10/10/2020, 2018 DTaP/Tdap/Td Vaccine (2 - Td or Tdap) 08/22/202910/2018 Procedures Procedure Name Priority Date/Time Associated Diagnosis Comments POCT LIPID PANEL Routine 05/31/2025 10:4 7 AM CDT Lipid screening from Last 3 Months Results * (ABNORMAL) POCT lipid panel (05/31/2025 10:47 AM CDT) Cholesterol, POC 203 <200 MG/DL HDL, POC 49 >=40 mg/dL Triglycerides, POC 84 <=149 mg/dL LDL Cholesterol POC 137(A) <=129 mg/dL Chol/HDL Ratio, POC 2.8 NONE Non-HDL Cholesterol, POC 154 NONE mg/dL Cholesterol Total, POC 203(A) 30 - 199 mg/dL Capillary blood 05/31/2025 1 0:47 AM CDT us Donnie Herndon MD POINT OF CARE TEST ORDERABLES Fi nal Result from Last 3 Months Insurance MEDICARE LOCAL [address] [employer]MENT Care Teams Custodian Relationship Specialty Start Date End Date Melony Nolasco NP [address] [place] [address] PCP - General Nurse Practitioner 01/24/22
--- OUTSIDE RECORDS SUMMARY | 2025-08-21 10:29 | XMS_ITS | Encounter Summary ---
Author Organization [facility] Healthcare Address [address] [place] [address] Care Team Providers Care Certified Registered Dental Assistant Name Role Phone Melony Nolasco NP Primary Care Provider [phone] Encounter Details Date Type Department Care Team ([facility] st Contact Info) Description 04/04/2022 Orders Only [facility] Health Information Management [address] [place] [id number] Scanning, Provider Social History Tobacco Use Types Packs/Day Years Used Date Smoking Tobacco: Former Comments Unknown Sex and Gender Information Value Date Recorded Sex Assigned at Not on file Legal Sex Female 2:06 PM CDT Gender Identity Not on file Sexual Orientation Not on file documented as of this encounter Plan of Treatment Not on file documented as of this encounter Procedures Procedure Name Priority Date/Time Associated Diagnosis Comments SCAN - LABS 04/04/2022 documented in this encounter Results * SCAN - LABS (04/04/2022) us Provider Scanning Final Result documented in this encounter Visit Diagnoses Not on filedocumented in this encounter Care Teams Certified Registered Dental Assistant Relationship Specialty Start Date End Date Melony Nolasco NP [address] [place], [place] [id number] PCP - General Nurse Practitioner 01/24/22 documented as of this encounter
--- OUTSIDE RECORDS SUMMARY | 2025-08-21 10:29 | XMS_ITS | Clinical Summary ---
Author Organization [facility] Address [address] [place] [address] Care Team Providers Care Hand Riveter Name Role Phone Unavailable Primary Care Provider Unavailabl e Social History Tobacco Use Types Packs/Day Years Used Date Smoking Tobacco: Never Assessed Comments Unknown Sex and Gender Information Value Date Recorded Sex Assigned at Not on file Legal Sex Female 7:41 PM CDT Gender Identity Not on file Sexual Orientation Not on file Plan of Treatment Health Maintenance Due Date Last Done Comments Colorectal Cancer Screening Colonoscopy (10 Years) 1959 Hepatitis C 1977 DTaP, Tdap and Td Vaccines ( 1 - Tdap) 1978 Mammogram Screening 1999 Pneumococcal Vaccine: 50+ Ye ars (1 of 1 - PCV) 2009 Zoster Vaccines (1 of 2) 2009 Dexa Scan (General) 2024 COVID-19 Vaccine ( - 2024-2 6 season) 2025 Influenza Adult (#1) 2025 RSV Immunization or 60+ Years (1 - 1-dose 75+ series) 2034 Hepatitis A Vaccines Aged Out No long er eligible based on patient's age to complete this topic Meningococcal B Vaccine Aged Out No l onger eligible based on patient's age to complete this topic Meningococcal Vaccine Aged Out No monico abhi eligible based on patient's age to complete this topic RSV Immunizations Under 20 Months Aged Out No longer eligible based on patient's age to complete this topic
[2025-08-21 10:35] LABS: NT Pro B Type Natriuretic Pept 751 pg/mL (19.9-100)
[2025-08-21 10:38] LABS: Troponin I < 0.012 ng/mL (0.000-0.034)
--- OUTSIDE RECORDS SUMMARY | 2025-08-21 11:27 | XMS_ITS | Clinical Summary ---
Author Organization [facility] [address] [facility] [address] Address [address] [facility] [address] [place] [address] Care Team Providers Care Billet Shearer Name Role Phone Melony Nolasco NP Primary Care Provider [phone] [phone] Allergies No known active allergies Medications albuterol [...] Description 05/31/2025 10:45 AM CDT Office Visit [facility] Medical [facility] Cardiology [address] [place] [address] Donnie Herndon MD Chronic diastolic [...] H & W M[employer] SUPPLEMENT Care Teams Billet Shearer Relationship Specialty Start Date End Date Melony Nolasco NP [address] [place] [address] PCP - General Nurse Practitioner 01/24/22
--- OUTSIDE RECORDS SUMMARY | 2025-08-21 11:27 | XMS_ITS | Clinical Summary ---
Author Organization [facility] Address [address] [place] [address] Care Team Providers Care Sewing Machine Mechanic Name Role Phone Unavailable Primary Care Provider [...]
--- OUTSIDE RECORDS SUMMARY | 2025-08-21 11:27 | XMS_ITS | Encounter Summary ---
Author Organization [facility] Healthcare Address [address] [place] [address] Care Team Providers Care Electroencephalographic Technician Name Role Phone Melony Nolasco NP Primary Care Provider [phone] [phone] Encounter Details Date Type Department Care Team ([facility] st Contact Info) Description 04/04/2022 Orders Only [facility] [place] Information Management [address] [place] [id number] Scanning, Provider Social History Tobacco Use Types [...] on filedocumented in this encounter Care Teams Electroencephalographic Technician Relationship Specialty Start Date End Date Melony Nolasco NP [address] [place], [place] [id number] PCP - General Nurse Practitioner 01/24/22 documented as of this encounter
== END 2025-08-21 11:03 | disposition home or self-care (01) ==
PROVIDERS: Emergency Provider Emergency Medicine; PCP Nurse Practitioner Family
DX: R00.2 Palpitations (principal); I48.91 Unspecified atrial fibrillation; I10 Essential (primary) hypertension; J44.9 Chronic obstructive pulmonary disease, unspecified; E03.9 Hypothyroidism, unspecified; Z87.891 Personal history of nicotine dependence; Z79.01 Long term (current) use of anticoagulants
CPT/HCPCS: 36415; 71045; 80053; 83880; 84484; 85025; 93005; 99284; A9270

== ENCOUNTER 2025-08-25 10:21 | Outpatient (CLI) | payer MEDICARE, OTHER, SELFPAY ==
--- OUTSIDE RECORDS SUMMARY | 2025-08-25 10:44 | XMS_ITS | Clinical Summary ---
Author Organization [facility] [address] [facility] [address] [facility] 162 [place] [address] Care Team Providers Care Polymerization Oven Tender Name Role Phone Melony Nolasco NP Primary Care Provider [phone] [phone] Allergies No known active allergies Medications albuterol [...] Description 05/31/2025 10:45 AM CDT Office Visit [facility] Medical [facility] Cardiology [address] [place] [address] Donnie Herndon MD Chronic diastolic [...] H & W MCR SUPPLEMENT Care Teams Polymerization Oven Tender Relationship Specialty Start Date End Date Melony Nolasco NP [address] [place] [address] PCP - General Nurse Practitioner 01/24/22
--- OUTSIDE RECORDS SUMMARY | 2025-08-25 10:44 | XMS_ITS | Clinical Summary ---
Author Organization [facility] Address [address] [place] [address] Care Team Providers Care Sawyer Helper Name Role Phone Unavailable Primary Care Provider [...]
--- NOTE | 2025-09-12 13:44 | WPDHOLTEREM ---
Holter/Event Monitor Holter/Event Monitor Date of procedure: 08/25/25 Holter/Event Procedure: Event Monitor Indications: Tachycardia Conclusion: 1. 13 days event monitor on 08/25/25. 2. Predominant rhythm is sinus rhythm. HR range 47-194 bpm; average HR 70 bpm. HR at 47 bpm was on 08/31/25 at 6:23 am. 3. There are rare premature supraventricular complexes, rare supraventricular couplets, and rare supraventricular triplets. There are 11 episodes of supraventricular tachycardia with fastest at 194 bpm and longest lasting 20 beats. 4. There are rare premature ventricular complexes and rare ventricular couplets. There is 1 episode of ventricular tachycardia at 135 bpm lasting 4 beats. 5. No significant pauses greater than 3 seconds. 6. No symptoms available for correlation.
== END 2025-08-25 10:22 | disposition home or self-care (01) ==
PROVIDERS: PCP Nurse Practitioner Family; Visit Provider Nurse Practitioner Family
DX: R42 Dizziness and giddiness (principal); R00.0 Tachycardia, unspecified
CPT/HCPCS: 93246